=== PATIENT | male | born 1970 | race Caucasian/White ===

== ENCOUNTER 2019-03-14 15:20 | Emergency (ER) | payer MEDICAID, SELFPAY ==
[2019-03-14] VITALS (7 sets, daily range): BP systolic 113–135; BP diastolic 70–76; PULSE 79–104; RESP 15–17; TEMP 36.4–37.1; O2SAT 98–100
--- NOTE | 2019-03-14 15:41 | DI.RAD_ITS ---
SYMPTOM/DIAGNOSIS: CONFUSION, R/O ACUTE DISEASE AP AND LATERAL CHEST: Comparison is made with 31 Aug 2017. The heart size is normal. The lungs are clear. No infiltrate, effusion or mass is identified. IMPRESSION: Negative chest x-ray
--- NOTE | 2019-03-14 15:41 | DI.CT_ITS ---
SYMPTOM/DIAGNOSIS: CONFUSION, R/O ACUTE CVA NONCONTRAST HEAD CT: Comparison is made with 31 Aug 2017. No intracranial hemorrhage or skull fracture seen. The ventricles are normal in size. There has been no change from the previous exam. IMPRESSION: Negative head CT.
--- NOTE | 2019-03-14 15:43 | W.ED.GENAD ---
Discharge Plan Disposition Patient Disposition: HOME Condition: Improving Discharge Details Chief Complaint: OD/Poison Clinical Impression: Altered mental status, Heroin use, Cocaine use Primary Care Provider: Zonia Camacho ED Provider: Linda Kim Home Meds and New Rx's Prescriptions: Continued acetaminophen [Tylenol] 325 MG tablet 650 mg PO PRN RF: 0 multivitamin [Multi-Day] 1 EACH tablet 1 tab PO DAILY RF: 0 ibuprofen 200 MG tablet 200 mg PO Q8H PRN PRNRF: 0 nicotine 21 MG/24 HR patch 24 hour 21 mg Transdermal DAILY Qty: 30 RF: 0 melatonin 3 MG tablet 6 mg PO HS PRNRF: 0 vit B nshy-F-PJ-iron-vit E [Vitamins B Complex] 1 EACH tablet 1 tab PO DAILY RF: 0 jk-[id number]-vjxo-FA-herbal cmplx#[id number] [Vitamin D3 Complete] 1 EACH tablet 1 tab PO DAILY RF: 0 Discharge Instructions Instructions: Narcotic Abuse (ED), Altered Mental Status (ED) Additional Instructions: Take the clonidine as needed and directed for symptoms related to drug withdrawal. Drink plenty fluids and get plenty of rest. Call your local recovery center to help with detoxification and drug withdrawal symptoms. Call your primary care doctor on Sunday to schedule a follow-up appointment for reevaluation. Return immediately to the emergency department if you develop any worsening or concerning symptoms. Discharge Data Discharge Date/Time-TO BE ENTERED AT DEPARTURE: 03/14/19 18:58 Discharge Physician: Linda Kim Medical Decision Making 48-year-old male with a history of IV drug abuse and previous alcohol abuse who presents with a complaint of confusion and not feeling right. Last IV heroin use at 4 AM, last cocaine use this afternoon, and took a tablet of Subutex at 12:30 PM today. Heart rate 100s, remainder vitals within normal limits. Patient appears very anxious and delayed in answering questions. There is a brief period during evaluation, where patient appeared to fall asleep and became unresponsive but was breathing. This lasted approximately 20 seconds and patient awoke and was able to answer questions. Patient also had a brief period where he stood up well nurses attempted to place an IV and he pulled off his monitor leads and bracelet. He then walked to the door near the outside of the room and slowly lowered himself to the ground but did not fall. He then awoke and was able to be stood up and he ambulated to the stretcher. Screening labs, chest x-ray, CT head, UDS, alcohol, acetaminophen, salicylate ordered. Suspect most likely his symptoms are due to multiple polysubstance abuse today. Will rule out ACS, electrolyte abnormality, CVA, or other acute intoxication. Will give a dose of Ativan and fluids and reassess. EKG notes a rate of 83, sinus, T wave inversion in V2, no acute ST ischemic changes, no old EKG to compare. Labs and imaging reviewed and unremarkable. CT head and chest x-ray negative. Normal white blood cell count, electrolytes. UDS notes opiates and cocaine. Urinalysis negative. Patient is requesting to go home. He is alert with clear speech and normal ambulation. He states he has clonidine at home that will help with withdrawal as he wants to detox from cocaine and heroin. He states he is also in contact with a local recovery center near his house. He states he had a follow-up appoint with his primary care doctor at [facility] [place] today but missed the appointment. His girlfriend is at bedside and will call the primary care doctor's office on Sunday morning to schedule follow-up appointment for reevaluation. Patient is requesting a few more tabs of clonidine for home. He is instructed to not take this if he uses any illicit drugs. He is instructed to return here immediately if he has any worsening or new concerning symptoms per Medical Records Medical records reviewed: Yes I reviewed the patient's medical records. Imaging Data Radiologic Study: Radiologist's impression: CT Head Without Contrast EXAM DATE/TIME: 03/14/2019 3:43 PM CLINICAL HISTORY: 48 years old, male; Alteration of consciousness; Other: Od TECHNIQUE: Imaging protocol: Axial computed tomography images of the head without contrast. Coronal and sagittal reformatted images were created and reviewed. COMPARISON: CT HEAD AND CSPINE W/O CONTRAST 08/31/2017 12:40 PM FINDINGS: Brain: Normal. No hemorrhage. Unremarkable white matter. No mass effect. Ventricles: Normal. No ventriculomegaly. Bones/joints: Unremarkable. No acute fracture. Sinuses: Visualized sinuses are unremarkable. No fluid levels. Mastoid air cells: Visualized mastoid air cells are well aerated. No mastoid effusion. Soft tissues: Unremarkable. IMPRESSION: No evidence for acute intracranial abnormality. Patient Name: JAYSON ROLLINS #: [id number]: ER Ordering Provider: : REG ER Primary Care Provider: Zonia Camacho Date of Exam: 03/14/19Sex: M : 1970Age: 48 XR Chest, 2 Views EXAM DATE/TIME: 03/14/2019 3:43 PM CLINICAL HISTORY: 48 years old, male; Other: AMS; Patient HX: Od TECHNIQUE: Imaging protocol: XR of the chest, 2 views. COMPARISON: CR CHEST 2 VIEWS PA,LAT 08/31/2017 12:43 PM FINDINGS: Lungs: The lungs are hyperaerated and hyperlucent. There is increase in the retrosternal airspace. Consider COPD. Pleural space: Unremarkable. No pleural effusion. No pneumothorax. Heart/Mediastinum: Unremarkable. No cardiomegaly. Bones/joints: Unremarkable. IMPRESSION: Mild hyperaeration, possible COPD. Reactive airway change is not excludable. Lab Data Lab results reviewed: Yes I reviewed the patient's lab results. Laboratory Tests Range/Units 03/14/19 03/14/19 03/14/19 16:00 16:00 16:00 WBC (4.4-10.8) k/cumm 10.14 RBC (4.50-6.00) m/cumm 5.22 Hgb (13.5-17.5) g/dL 16.3 Hct (40.0-50.0) % 47.4 MCV (80-95) fL 90.8 MCH (27.0-33.0) pg 31.2 MCHC (32.0-36.0) g/dL 34.4 RDW (11.8-14.1) % 14.0 Plt Count (130-400) x1000/uL 196 MPV (8.0-11.0) fL 10.3 Immature Gran % 0.2 Neutrophils % 54.6 Lymphocytes % 33.6 Monocytes % 9.1 Eosinophils % 2.1 Basophils % 0.4 Absolute Neutrophils (1.2-6.7) k/cumm 5.54 Absolute Lymphocytes (1.2-3.4) k/cumm 3.41 H Absolute Monocytes (0.11-0.7) k/cumm 0.92 H Absolute Eosinophils (0.0-0.7) k/cumm 0.21 Absolute Basophils (0.0-0.2) k/cumm 0.04 Sodium (136-145) mmol/L 138 Potassium (3.5-5.1) mmol/L 3.7 Chloride (98-107) mmol/L 101 Carbon Dioxide (21.0-32.0) mmol/L 26.5 Anion Gap (3-11) mmol/L 10.5 BUN (7-18) mg/dL 15 Creatinine (0.70-1.30) mg/dL 1.11 Estimated GFR/1.73 m2 (mL/min/1.73m2) >= 60.00 Glucose (70-100) mg/dL 146 H Calcium (8.5-10.1) mg/dL 8.3 L Magnesium (1.8-2.4) mg/dL 2.0 Total Bilirubin (0.2-1.0) mg/dL 0.4 AST (15-37) U/L 39 H ALT (12-78) U/L 58 Alkaline Phosphatase (46-116) U/L 82 Troponin I (0.00-0.06) ng/mL < 0.05 Total Protein (6.4-8.2) g/dL 7.9 Albumin (3.4-5.0) g/dL 3.8 Urine Color (Yellow) Urine Clarity (Clear) Urine pH (5-8) Ur Specific [place] (1.005-1.025) Urine Protein (Negative) mg/dL Urine Ketones (Negative) mg/dL Urine Blood (Negative) Urine Nitrite (Negative) Urine Bilirubin (Negative) Urine Urobilinogen (Up TO 0.2) EU/dL Ur Leukocyte Esterase (Negative) Urine Glucose (Negative) mg/dL Salicylates (2.8-20.0) mg/dL 5.7 Urine Opiates Screen (Negative) Urine Methadone Screen (Negative) Acetaminophen (10-30) ug/mL < 3 L Ur Barbiturates Screen (Negative) Ur Tricyclics Screen (Negative) Ur Amphetamines Screen (Negative) U Benzodiazepines Scrn (Negative) Urine Cocaine Screen (Negative) Ur THC Screen (Negative) Ethyl Alcohol (<3) mg/dL < 3.0 Range/Units 06/28/19 06/28/19 16:30 16:30 WBC (4.4-10.8) k/cumm RBC (4.50-6.00) m/cumm Hgb (13.5-17.5) g/dL Hct (40.0-50.0) % MCV (80-95) fL MCH (27.0-33.0) pg MCHC (32.0-36.0) g/dL RDW (11.8-14.1) % Plt Count (130-400) x1000/uL MPV (8.0-11.0) fL Immature Gran % Neutrophils % Lymphocytes % Monocytes % Eosinophils % Basophils % Absolute Neutrophils (1.2-6.7) k/cumm Absolute Lymphocytes (1.2-3.4) k/cumm Absolute Monocytes (0.11-0.7) k/cumm Absolute Eosinophils (0.0-0.7) k/cumm Absolute Basophils (0.0-0.2) k/cumm Sodium (136-145) mmol/L Potassium (3.5-5.1) mmol/L Chloride (98-107) mmol/L Carbon Dioxide (21.0-32.0) mmol/L Anion Gap (3-11) mmol/L BUN (7-18) mg/dL Creatinine (0.70-1.30) mg/dL Estimated GFR/1.73 m2 (mL/min/1.73m2) Glucose (70-100) mg/dL Calcium (8.5-10.1) mg/dL Magnesium (1.8-2.4) mg/dL Total Bilirubin (0.2-1.0) mg/dL AST (15-37) U/L ALT (12-78) U/L Alkaline Phosphatase (46-116) U/L Troponin I (0.00-0.06) ng/mL Total Protein (6.4-8.2) g/dL Albumin (3.4-5.0) g/dL Urine Color (Yellow) Yellow Urine Clarity (Clear) Clear Urine pH (5-8) 5.5 Ur Specific [place] (1.005-1.025) 1.010 Urine Protein (Negative) mg/dL Negative Urine Ketones (Negative) mg/dL Negative Urine Blood (Negative) Negative Urine Nitrite (Negative) Negative Urine Bilirubin (Negative) Negative Urine Urobilinogen (Up TO 0.2) EU/dL 0.2 Ur Leukocyte Esterase (Negative) Negative Urine Glucose (Negative) mg/dL Negative Salicylates (2.8-20.0) mg/dL Urine Opiates Screen (Negative) Positive Urine Methadone Screen (Negative) Negative Acetaminophen (10-30) ug/mL Ur Barbiturates Screen (Negative) Negative Ur Tricyclics Screen (Negative) Negative Ur Amphetamines Screen (Negative) Negative U Benzodiazepines Scrn (Negative) Negative Urine Cocaine Screen (Negative) Positive Ur THC Screen (Negative) Negative Ethyl Alcohol (<3) mg/dL ECG Data Attestation: I personally reviewed and interpreted this ECG (s) as follows: Interpretation: Rate of 85, sinus, T wave inversion in V2. No acute ST ischemic changes. QTc 461. QRS 94. No old EKG to compare. HPI General Mode of arrival: ambulatory. Date/Time Provider Initiated Documentation: 03/14/19 15:23. Limitations to Documentation: no limitations. Information obtained by: patient. HPI Narrative: Patient is a 48-year-old male with a history of IV drug abuse and previous history of alcohol abuse who presents to the ED with anxiety and concern for withdrawal. Patient unable to provide much history due to severe anxiety and delayed answering questions. He does admit to last IV heroin use at 4 AM. He does also admit to cocaine use this afternoon. He states he also took a dose of Subutex at 12:30 PM and states since then he has felt more confused and states I do not feel. States his last subutex use was 1 year ago. Related Data Home Medications Medication Instructions Recorded Confirmed multivitamin [Multi-Day] 1 tab PO DAILY 08/01/13 08/31/17 acetaminophen [Tylenol] 650 mg PO PRN tab-cap 02/11/16 08/31/17 ibuprofen 200 mg PO Q8H PRN PRN 05/22/16 08/31/17 nicotine 21 mg TRANSDERMAL DAILY #30 patch 05/26/16 08/31/17 melatonin 6 mg PO HS PRN 08/31/17 08/31/17 en-[id number]-fgin-FA-herbal cmplx#[id number] 1 tab PO DAILY 08/31/17 08/31/17 [Vitamin D3 Complete] vit B yozy-Y-HE-iron-vit E 1 tab PO DAILY 08/31/17 08/31/17 [Vitamins B Complex] Previous Rx's Medication Instructions Recorded nicotine 21 mg TRANSDERMAL DAILY #30 patch 05/26/16 Allergies Allergy/AdvReac Type Severity Reaction Status Date / Time No Known Drug Allergies Allergy Unverified 08/31/17 12:07 General Stated Complaint: OD/Poison RENETTA: 2 Review of Systems Review of Systems All systems reviewed & are unremarkable except as noted in HPI and below Constitutional Reports as per HPI, Denies chills and Denies fever(s) Eyes Denies blurry vision ENT Denies dizziness, Denies sore throat and Denies throat swelling Cardiovascular Denies chest pain and Denies dyspnea Respiratory Denies cough and Denies dyspnea Gastrointestinal Denies abdominal pain, Denies diarrhea and Denies vomiting Genitourinary Denies hematuria and Denies dysuria Musculoskeletal Denies back pain and Denies numbness Integumentary/Breasts Denies lesions and Denies rash Neurologic Reports confusion, Denies dizziness, Denies focal weakness and Denies numbness Psychiatric Reports confusion Allergic/Immunologic Denies throat swelling [facility] Medical History IV drug abuse (Acute) Alcohol abuse (Chronic) Hepatitis C (Chronic) Surgical History liver biopsy Family History Mother Personal history of malignant neoplasm Father Alcohol abuse Social History Smoking/Tobacco Use Status: Current every day Alcohol Intake: never Drug use: Daily Substance use type: crack/cocaine and heroin Do you feel safe in your relationship?: Yes Exam Const General: cooperative and anxious Orientation: alert, awake and other (delay in answering questions) HENMT Head: normal to inspection Ears: hearing grossly normal bilaterally, external ears normal and TM's normal bilaterally General nose exam: external nose normal Face and sinus: normal facial exam Mouth: oral mucosae normal Teeth and gingiva: dentition normal Throat: posterior oropharynx normal Eyes General: appearance normal, both eyes and all related structures Eyelids: eyelids normal Pupils: PERRL EOM: EOM intact bilaterally Neck Neck: normal visual inspection Lymphatic: no lymphadenopathy noted Chest Chest: normal inspection of the chest Resp Effort & Inspection: normal respiratory effort and able to speak in complete sentences Auscultation: clear to auscultation bilaterally Cardio Rate: regular rate Rhythm: regular rhythm GI Inspection: normal to inspection and no abdominal wall ecchymosis Palpation: soft, not firm, no guarding, no hepatosplenomegaly, no masses and nontender Auscultation: normal bowel sounds Back/Spine/Pelvis Back: no CVA tenderness Skin General skin exam: no rashes or lesions noted Neuro General: alert, awake and oriented x3 Cranial Nerves: CN's II-XI intact bilaterally Cognition: abnormal cognition (anxious, delay in answering questions) Speech: speech normal Gait: normal gait Motor: muscle tone normal throughout and strength 5/5 throughout Sensory Exam: no sensory deficits noted Extrem General: normal to inspection, full ROM and normal capillary refill Psych Appearance: grossly normal Mental Status: mental status grossly normal Speech and Movement: speech and movement normal Affect: normal affect Thought Process: normal Course Vital Signs Temperature 98.4 F 03/14/19 15:24 Pulse 104 H 03/14/19 15:24 Blood Pressure 135/71 03/14/19 15:24 Pulse Oximetry 98 03/14/19 15:24 Temperature 98.4 F 03/14/19 15:24 Temperature Source Skin 03/14/19 15:24 Pulse 104 H 03/14/19 15:24 Blood Pressure 135/71 03/14/19 15:24 Pulse Oximetry 98 03/14/19 15:24 Oxygen Delivery Method Room Air 03/14/19 15:24 Oxygen Flow Rate 0 03/14/19 15:24 Pain Level 0 03/14/19 15:24
--- NOTE | 2019-03-14 15:50 | ED.GENADUL_ITS ---
Discharge Plan Disposition Patient Disposition: HOME Condition: Improving Discharge Details Chief Complaint: OD/Poison Clinical Impression: Altered mental status, Heroin use, Cocaine use Primary Care Provider: Zonia Camacho ED Provider: Linda Kim Home Meds and New Rx's Prescriptions: Continued acetaminophen [Tylenol] 325 MG tablet 650 mg PO PRN RF: 0 multivitamin [Multi-Day] 1 EACH tablet 1 tab PO DAILY RF: 0 ibuprofen 200 MG tablet 200 mg PO Q8H PRN PRNRF: 0 nicotine 21 MG/24 HR patch 24 hour 21 mg Transdermal DAILY Qty: 30 RF: 0 melatonin 3 MG tablet 6 mg PO HS PRNRF: 0 vit B rtim-O-KP-iron-vit E [Vitamins B Complex] 1 EACH tablet 1 tab PO DAILY RF: 0 [id number]-FA-herbal cmplx#[id number] [Vitamin D3 Complete] 1 EACH tablet 1 tab PO DAILY RF: 0 Discharge Instructions Instructions: Narcotic Abuse (ED), Altered Mental Status (ED) Additional Instructions: Take the clonidine as needed and directed for symptoms related to drug withdrawal. Drink plenty fluids and get plenty of rest. Call your local recovery center to help with detoxification and drug withdrawal symptoms. Call your primary care doctor on Sunday to schedule a follow-up appointment for reevaluation. Return immediately to the emergency department if you develop any worsening or concerning symptoms. Discharge Data Discharge Date/Time-TO BE ENTERED AT DEPARTURE: 03/14/19 18:58 Discharge Physician: Linda Kim Medical Decision Making 48-year-old male with a history of IV drug abuse and previous alcohol abuse who presents with a complaint of confusion and not feeling right. Last IV heroin use at 4 AM, last cocaine use this afternoon, and took a tablet of Subutex at 12:30 PM today. Heart rate 100s, remainder vitals within normal limits. Patient appears very anxious and delayed in answering questions. There is a brief period during evaluation, where patient appeared to fall asleep and became unresponsive but was breathing. This lasted approximately 20 seconds and patient awoke and was able to answer questions. Patient also had a brief period where he stood up well nurses attempted to place an IV and he pulled off his monitor leads and bracelet. He then walked to the door near the outside of the room and slowly lowered himself to the ground but did not fall. He then awoke and was able to be stood up and he ambulated to the stretcher. Screening labs, chest x-ray, CT head, UDS, alcohol, acetaminophen, salicylate ordered. Suspect most likely his symptoms are due to multiple polysubstance abuse today. Will rule out ACS, electrolyte abnormality, CVA, or other acute intoxication. Will give a dose of Ativan and fluids and reassess. EKG notes a rate of 83, sinus, T wave inversion in V2, no acute ST ischemic changes, no old EKG to compare. Labs and imaging reviewed and unremarkable. CT head and chest x-ray negative. Normal white blood cell count, electrolytes. UDS notes opiates and cocaine. Urinalysis negative. Patient is requesting to go home. He is alert with clear speech and normal ambulation. He states he has clonidine at home that will help with withdrawal as he wants to detox from cocaine and heroin. He states he is also in contact with a local recovery center near his house. He states he had a follow-up appoint with his primary care doctor at [place] today but missed the appointment. His girlfriend is at bedside and will call the primary care doctor's office on Sunday morning to schedule follow-up appointment for reevaluation. Patient is requesting a few more tabs of clonidine for home. He is instructed to not take this if he uses any illicit drugs. He is instructed to return here immediately if he has any worsening or new concerning symptoms per Medical Records Medical records reviewed: Yes I reviewed the patient's medical records. Imaging Data Radiologic Study: Radiologist's impression: CT Head Without Contrast EXAM DATE/TIME: 03/14/2019 3:43 PM CLINICAL HISTORY: 48 years old, male; Alteration of consciousness; Other: Od TECHNIQUE: Imaging protocol: Axial computed tomography images of the head without contrast. Coronal and sagittal reformatted images were created and reviewed. COMPARISON: CT HEAD AND CSPINE W/O CONTRAST 08/31/2017 12:40 PM FINDINGS: Brain: Normal. No hemorrhage. Unremarkable white matter. No mass effect. Ventricles: Normal. No ventriculomegaly. Bones/joints: Unremarkable. No acute fracture. Sinuses: Visualized sinuses are unremarkable. No fluid levels. Mastoid air cells: Visualized mastoid air cells are well aerated. No mastoid effusion. Soft tissues: Unremarkable. IMPRESSION: No evidence for acute intracranial abnormality. Patient Name: JAYSON ROLLINS #: [id number]: ER Ordering Provider: : REG ER Primary Care Provider: Zonia Camacho Date of Exam: 03/14/19Sex: M : 1970Age: 48 XR Chest, 2 Views EXAM DATE/TIME: 03/14/2019 3:43 PM CLINICAL HISTORY: 48 years old, male; Other: AMS; Patient HX: Od TECHNIQUE: Imaging protocol: XR of the chest, 2 views. COMPARISON: CR CHEST 2 VIEWS PA,LAT 08/31/2017 12:43 PM FINDINGS: Lungs: The lungs are hyperaerated and hyperlucent. There is increase in the retrosternal airspace. Consider COPD. Pleural space: Unremarkable. No pleural effusion. No pneumothorax. Heart/Mediastinum: Unremarkable. No cardiomegaly. Bones/joints: Unremarkable. IMPRESSION: Mild hyperaeration, possible COPD. Reactive airway change is not excludable. Lab Data Lab results reviewed: Yes I reviewed the patient's lab results. Laboratory Tests Range/Units 03/14/19 03/14/19 03/14/19 16:00 16:00 16:00 WBC (4.4-10.8) k/cumm 10.14 RBC (4.50-6.00) m/cumm 5.22 Hgb (13.5-17.5) g/dL 16.3 Hct (40.0-50.0) % 47.4 MCV (80-95) fL 90.8 MCH (27.0-33.0) pg 31.2 MCHC (32.0-36.0) g/dL 34.4 RDW (11.8-14.1) % 14.0 Plt Count (130-400) x1000/uL 196 MPV (8.0-11.0) fL 10.3 Immature Gran % 0.2 Neutrophils % 54.6 Lymphocytes % 33.6 Monocytes % 9.1 Eosinophils % 2.1 Basophils % 0.4 Absolute Neutrophils (1.2-6.7) k/cumm 5.54 Absolute Lymphocytes (1.2-3.4) k/cumm 3.41 H Absolute Monocytes (0.11-0.7) k/cumm 0.92 H Absolute Eosinophils (0.0-0.7) k/cumm 0.21 Absolute Basophils (0.0-0.2) k/cumm 0.04 Sodium (136-145) mmol/L 138 Potassium (3.5-5.1) mmol/L 3.7 Chloride (98-107) mmol/L 101 Carbon Dioxide (21.0-32.0) mmol/L 26.5 Anion Gap (3-11) mmol/L 10.5 BUN (7-18) mg/dL 15 Creatinine (0.70-1.30) mg/dL 1.11 Estimated GFR/1.73 m2 (mL/min/1.73m2) >= 60.00 Glucose (70-100) mg/dL 146 H Calcium (8.5-10.1) mg/dL 8.3 L Magnesium (1.8-2.4) mg/dL 2.0 Total Bilirubin (0.2-1.0) mg/dL 0.4 AST (15-37) U/L 39 H ALT (12-78) U/L 58 Alkaline Phosphatase (46-116) U/L 82 Troponin I (0.00-0.06) ng/mL < 0.05 Total Protein (6.4-8.2) g/dL 7.9 Albumin (3.4-5.0) g/dL 3.8 Urine Color (Yellow) Urine Clarity (Clear) Urine pH (5-8) Ur Specific Buford (1.005-1.025) Urine Protein (Negative) mg/dL Urine Ketones (Negative) mg/dL Urine Blood (Negative) Urine Nitrite (Negative) Urine Bilirubin (Negative) Urine Urobilinogen (Up TO 0.2) EU/dL Ur Leukocyte Esterase (Negative) Urine Glucose (Negative) mg/dL Salicylates (2.8-20.0) mg/dL 5.7 Urine Opiates Screen (Negative) Urine Methadone Screen (Negative) Acetaminophen (10-30) ug/mL < 3 L Ur Barbiturates Screen (Negative) Ur Tricyclics Screen (Negative) Ur Amphetamines Screen (Negative) U Benzodiazepines Scrn (Negative) Urine Cocaine Screen (Negative) Ur THC Screen (Negative) Ethyl Alcohol (<3) mg/dL < 3.0 Range/Units 06/28/19 06/28/19 16:30 16:30 WBC (4.4-10.8) k/cumm RBC (4.50-6.00) m/cumm Hgb (13.5-17.5) g/dL Hct (40.0-50.0) % MCV (80-95) fL MCH (27.0-33.0) pg MCHC (32.0-36.0) g/dL RDW (11.8-14.1) % Plt Count (130-400) x1000/uL MPV (8.0-11.0) fL Immature Gran % Neutrophils % Lymphocytes % Monocytes % Eosinophils % Basophils % Absolute Neutrophils (1.2-6.7) k/cumm Absolute Lymphocytes (1.2-3.4) k/cumm Absolute Monocytes (0.11-0.7) k/cumm Absolute Eosinophils (0.0-0.7) k/cumm Absolute Basophils (0.0-0.2) k/cumm Sodium (136-145) mmol/L Potassium (3.5-5.1) mmol/L Chloride (98-107) mmol/L Carbon Dioxide (21.0-32.0) mmol/L Anion Gap (3-11) mmol/L BUN (7-18) mg/dL Creatinine (0.70-1.30) mg/dL Estimated GFR/1.73 m2 (mL/min/1.73m2) Glucose (70-100) mg/dL Calcium (8.5-10.1) mg/dL Magnesium (1.8-2.4) mg/dL Total Bilirubin (0.2-1.0) mg/dL AST (15-37) U/L ALT (12-78) U/L Alkaline Phosphatase (46-116) U/L Troponin I (0.00-0.06) ng/mL Total Protein (6.4-8.2) g/dL Albumin (3.4-5.0) g/dL Urine Color (Yellow) Yellow Urine Clarity (Clear) Clear Urine pH (5-8) 5.5 Ur Specific Buford (1.005-1.025) 1.010 Urine Protein (Negative) mg/dL Negative Urine Ketones (Negative) mg/dL Negative Urine Blood (Negative) Negative Urine Nitrite (Negative) Negative Urine Bilirubin (Negative) Negative Urine Urobilinogen (Up TO 0.2) EU/dL 0.2 Ur Leukocyte Esterase (Negative) Negative Urine Glucose (Negative) mg/dL Negative Salicylates (2.8-20.0) mg/dL Urine Opiates Screen (Negative) Positive Urine Methadone Screen (Negative) Negative Acetaminophen (10-30) ug/mL Ur Barbiturates Screen (Negative) Negative Ur Tricyclics Screen (Negative) Negative Ur Amphetamines Screen (Negative) Negative U Benzodiazepines Scrn (Negative) Negative Urine Cocaine Screen (Negative) Positive Ur THC Screen (Negative) Negative Ethyl Alcohol (<3) mg/dL ECG Data Attestation: I personally reviewed and interpreted this ECG (s) as follows: Interpretation: Rate of 85, sinus, T wave inversion in V2. No acute ST ischemic changes. QTc 461. QRS 94. No old EKG to compare. HPI General Mode of arrival: ambulatory . Date/Time Provider Initiated Documentation: 03/14/19 15:23 . Limitations to Documentation: no limitations . Information obtained by: patient . HPI Narrative: Patient is a 48-year-old male with a history of IV drug abuse and previous history of alcohol abuse who presents to the ED with anxiety and concern for withdrawal. Patient unable to provide much history due to severe anxiety and delayed answering questions. He does admit to last IV heroin use at 4 AM. He does also admit to cocaine use this afternoon. He states he also took a dose of Subutex at 12:30 PM and states since then he has felt more confused and states I do not feel. States his last subutex use was 1 year ago. Related Data Home Medications Medication Instructions Recorded Confirmed multivitamin [Multi-Day] 1 tab PO DAILY 08/01/13 08/31/17 acetaminophen [Tylenol] 650 mg PO PRN tab-cap 02/11/16 08/31/17 ibuprofen 200 mg PO Q8H PRN PRN 05/22/16 08/31/17 nicotine 21 mg TRANSDERMAL DAILY #30 patch 05/26/16 08/31/17 melatonin 6 mg PO HS PRN 08/31/17 08/31/17 [id number]-za-lsiw-FA-herbal cmplx#190 1 tab PO DAILY 08/31/17 08/31/17 [Vitamin D3 Complete] vit B xzbq-U-PX-iron-vit E 1 tab PO DAILY 08/31/17 08/31/17 [Vitamins B Complex] Previous Rx's Medication Instructions Recorded nicotine 21 mg TRANSDERMAL DAILY #30 patch 05/26/16 Allergies Allergy/AdvReac Type Severity Reaction Status Date / Time No Known Drug Allergies Allergy Unverified 08/31/17 12:07 General Stated Complaint: OD/Poison RENETTA: 2 Review of Systems Review of Systems All systems reviewed & are unremarkable except as noted in HPI and below Constitutional Reports as per HPI, Denies chills and Denies fever(s) Eyes Denies blurry vision ENT Denies dizziness, Denies sore throat and Denies throat swelling Cardiovascular Denies chest pain and Denies dyspnea Respiratory Denies cough and Denies dyspnea Gastrointestinal Denies abdominal pain, Denies diarrhea and Denies vomiting Genitourinary Denies hematuria and Denies dysuria Musculoskeletal Denies back pain and Denies numbness Integumentary/Breasts Denies lesions and Denies rash Neurologic Reports confusion, Denies dizziness, Denies focal weakness and Denies numbness Psychiatric Reports confusion Allergic/Immunologic Denies throat swelling [facility] Medical History IV drug abuse (Acute) Alcohol abuse (Chronic) Hepatitis C (Chronic) Surgical History liver biopsy Family History Mother Personal history of malignant neoplasm Father Alcohol abuse Social History Smoking/Tobacco Use Status: Current every day Alcohol Intake: never Drug use: Daily Substance use type: crack/cocaine and heroin Do you feel safe in your relationship?: Yes Exam Const General: cooperative and anxious Orientation: alert, awake and other (delay in answering questions) HENMT Head: normal to inspection Ears: hearing grossly normal bilaterally, external ears normal and TM's normal bilaterally General nose exam: external nose normal Face and sinus: normal facial exam Mouth: oral mucosae normal Teeth and gingiva: dentition normal Throat: posterior oropharynx normal Eyes General: appearance normal, both eyes and all related structures Eyelids: eyelids normal Pupils: PERRL EOM: EOM intact bilaterally Neck Neck: normal visual inspection Lymphatic: no lymphadenopathy noted Chest Chest: normal inspection of the chest Resp Effort & Inspection: normal respiratory effort and able to speak in complete sentences Auscultation: clear to auscultation bilaterally Cardio Rate: regular rate Rhythm: regular rhythm GI Inspection: normal to inspection and no abdominal wall ecchymosis Palpation: soft, not firm, no guarding, no hepatosplenomegaly, no masses and nontender Auscultation: normal bowel sounds Back/Spine/Pelvis Back: no CVA tenderness Skin General skin exam: no rashes or lesions noted Neuro General: alert, awake and oriented x3 Cranial Nerves: CN's II-XI intact bilaterally Cognition: abnormal cognition (anxious, delay in answering questions) Speech: speech normal Gait: normal gait Motor: muscle tone normal throughout and strength 5/5 throughout Sensory Exam: no sensory deficits noted Extrem General: normal to inspection, full ROM and normal capillary refill Psych Appearance: grossly normal Mental Status: mental status grossly normal Speech and Movement: speech and movement normal Affect: normal affect Thought Process: normal Course Vital Signs Temperature 98.4 F 03/14/19 15:24 Pulse 104 H 03/14/19 15:24 Blood Pressure 135/71 03/14/19 15:24 Pulse Oximetry 98 03/14/19 15:24 Temperature 98.4 F 03/14/19 15:24 Temperature Source Skin 03/14/19 15:24 Pulse 104 H 03/14/19 15:24 Blood Pressure 135/71 03/14/19 15:24 Pulse Oximetry 98 03/14/19 15:24 Oxygen Delivery Method Room Air 03/14/19 15:24 Oxygen Flow Rate 0 03/14/19 15:24 Pain Level 0 03/14/19 15:24
[2019-03-14 16:10] LABS: Abs Immature Grans 0.02 k/cumm (0.0-0.09); Absolute Basophil Count 0.04 k/cumm (0.0-0.2); Absolute Eosinophil Count 0.21 k/cumm (0.0-0.7); Absolute Lymphocyte Count 3.41 k/cumm (1.2-3.4); Absolute Monocyte Count 0.92 k/cumm (0.11-0.7); Absolute Neutrophil Count 5.54 k/cumm (1.2-6.7); Basophils % 0.4; Eosinophils % 2.1; HCT 47.4 % (40.0-50.0); HGB 16.3 g/dL (13.5-17.5); Immature Grans % 0.2; Lymphocytes % 33.6; Mean Corp. HGB Concentration 34.4 g/dL (32.0-36.0); Mean Corpuscular Hemoglobin 31.2 pg (27.0-33.0); Mean Corpuscular Volume 90.8 fL (80-95); Mean Platelet Volume 10.3 fL (8.0-11.0); Monocytes % 9.1; Neutrophils % 54.6; Platelet Count 196 x1000/uL (130-400); RBC 5.22 m/cumm (4.50-6.00); White Blood Cell Count 10.14 k/cumm (4.4-10.8)
[2019-03-14] MEDS: LORazepam 2 MG/ML VIAL 0.5 MG IVP ×2 (16:11→16:18)
[2019-03-14] MEDS: Normal Saline 1,000 ML 1000 ML IV (16:18)
[2019-03-14 16:33] LABS: ALT 58 U/L (12-78); AST 39 U/L (15-37); Albumin 3.8 g/dL (3.4-5.0); Alkaline Phosphatase 82 U/L (46-116); Anion Gap 10.5 mmol/L (3-11); BUN 15 mg/dL (7-18); Bilirubin, Total 0.4 mg/dL (0.2-1.0); CO2 26.5 mmol/L (21.0-32.0); CREATININE 1.11 mg/dL (0.70-1.30); Calcium 8.3 mg/dL (8.5-10.1); Chloride 101 mmol/L (98-107); Glucose 146 mg/dL (70-100); Potassium 3.7 mmol/L (3.5-5.1); Sodium 138 mmol/L (136-145); Total Protein 7.9 g/dL (6.4-8.2)
[2019-03-14 16:43] LABS: Bilirubin Negative (Negative); Blood Negative (Negative); Clarity Clear (Clear); Glucose Negative (Negative); Ketones Negative (Negative); Leukocyte Esterase Negative (Negative); Nitrite Negative (Negative); Urobilinogen 0.2 EU/dL (Up TO 0.2); pH 5.5 (5-8)
[2019-03-14 16:44] LABS: Troponin I < 0.05 ng/mL (0.00-0.06)
[2019-03-14 16:59] LABS: ETHANOL BLOOD < 3.0 mg/dL (<3)
[2019-03-14 17:12] LABS: Salicylate 5.7 mg/dL (2.8-20.0)
[2019-03-14 17:12] LABS: *AMPHETAMINES SCREEN URINE Negative (Negative); *BARBITURATES SCREEN URINE Negative (Negative); *BENZODIAZEPINES SCREEN URINE Negative (Negative); Cannabinoids THC Negative (Negative); Cocaine Screen,Urine POSITIVE (Negative); METHADONE URINE SCREEN Negative (Negative); OPIATES URINE SCREEN POSITIVE (Negative)
[2019-03-14 17:13] LABS: Acetaminophen < 3 ug/mL (10-30)
[2019-03-14 17:20] LABS: Tricyclic Antidepressants Negative (Negative)
--- NOTE | 2019-03-14 17:40 | DI.VRAD_ITS ---
EXAM: CT Head Without Contrast EXAM DATE/TIME: 03/14/2019 3:43 PM CLINICAL HISTORY: 48 years old, male; Alteration of consciousness; Other: Od TECHNIQUE: Imaging protocol: Axial computed tomography images of the head without contrast. Coronal and sagittal reformatted images were created and reviewed. COMPARISON: CT HEAD AND CSPINE W/O CONTRAST 08/31/2017 12:40 PM FINDINGS: Brain: Normal. No hemorrhage. Unremarkable white matter. No mass effect. Ventricles: Normal. No ventriculomegaly. Bones/joints: Unremarkable. No acute fracture. Sinuses: Visualized sinuses are unremarkable. No fluid levels. Mastoid air cells: Visualized mastoid air cells are well aerated. No mastoid effusion. Soft tissues: Unremarkable. IMPRESSION: No evidence for acute intracranial abnormality. COMMENT: Preliminary interpretation is based on receipt of 340 image(s). A final report will be issued subsequently. Dictated and Authenticated by: Yani Leon MD. Ordering:SAUL Mckeon MD
--- NOTE | 2019-03-14 17:47 | DI.VRAD_ITS ---
EXAM: XR Chest, 2 Views EXAM DATE/TIME: 03/14/2019 3:43 PM CLINICAL HISTORY: 48 years old, male; Other: AMS; Patient HX: Od TECHNIQUE: Imaging protocol: XR of the chest, 2 views. COMPARISON: CR CHEST 2 VIEWS PA,LAT 08/31/2017 12:43 PM FINDINGS: Lungs: The lungs are hyperaerated and hyperlucent. There is increase in the retrosternal airspace. Consider COPD. Pleural space: Unremarkable. No pleural effusion. No pneumothorax. Heart/Mediastinum: Unremarkable. No cardiomegaly. Bones/joints: Unremarkable. IMPRESSION: Mild hyperaeration, possible COPD. Reactive airway change is not excludable. COMMENT: Preliminary interpretation is based on receipt of 2 image(s). A final report will be issued subsequently. Dictated and Authenticated by: Yani Leon MD. Ordering:SAUL Mckeon MD
== END 2019-03-14 18:58 | disposition home or self-care (01) ==
PROVIDERS: Emergency Provider Physician Assistant; PCP Family Medicine
DX: R41.82 Altered mental status, unspecified (principal); R91.8 Other nonspecific abnormal finding of lung field; F14.10 Cocaine abuse, uncomplicated; F11.10 Opioid abuse, uncomplicated
CPT/HCPCS: 36415; 80053; 80307; 93005; 96361; 96374; 96376; 99285; 70450; 71046; 80320; 80329; 81003; 83735; 84484; 85025; 93010; J2060

== ENCOUNTER 2019-07-20 20:20 | Emergency (ER) | payer MEDICAID, SELFPAY ==
[2019-07-20 20:33] VITALS: BP 154/92; PULSE 108; RESP 18; TEMP 36.7; O2SAT 108
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
--- NOTE | 2019-07-20 22:25 | NUR.NOTE ---
pt ate an egg salad sandwhich , he requested and received an orange . he is eating it now and anticipates going to [place] via ambulance to get his ring cut off . he saw the monomer recovery supervisor while in this ED Note:
[2019-07-20 22:39] VITALS: PULSE 100; RESP 18; O2SAT 98
== END 2019-07-20 22:45 | disposition short-term general hospital (02) ==
PROVIDERS: Emergency Provider Emergency Medicine; PCP Family Medicine
DX: T23.022A Burn of unspecified degree of single left finger (nail) except thumb, initial encounter (principal); X08.8XXA Exposure to other specified smoke, fire and flames, initial encounter; F11.10 Opioid abuse, uncomplicated
CPT/HCPCS: 99283

== ENCOUNTER 2019-11-07 17:17 | Outpatient (REF) | payer MEDICAID, SELFPAY ==
[2019-11-07 20:08] LABS: HCT 46.6 % (40.0-50.0); HGB 15.8 g/dL (13.5-17.5); Mean Corp. HGB Concentration 33.9 g/dL (32.0-36.0); Mean Corpuscular Hemoglobin 30.9 pg (27.0-33.0); Mean Corpuscular Volume 91.2 fL (80-95); Mean Platelet Volume 11.2 fL (8.0-11.0); Platelet Count 195 x1000/uL (130-400); RBC 5.11 m/cumm (4.50-6.00); RBC Distribution Width 13.3 % (11.8-14.1); White Blood Cell Count 9.12 k/cumm (4.4-10.8)
[2019-11-07 20:48] LABS: ALT 107 U/L (16-63); AST 51 U/L (15-37); Albumin 4.1 g/dL (3.4-5.0); Alkaline Phosphatase 65 U/L (46-116); Anion Gap 11.4 mmol/L (3-11); BUN 14 mg/dL (7-18); Bilirubin, Total 0.3 mg/dL (0.2-1.0); CO2 26.6 mmol/L (21.0-32.0); CREATININE 0.91 mg/dL (0.70-1.30); Calcium 8.9 mg/dL (8.5-10.1); Chloride 104 mmol/L (98-107); Glucose 90 mg/dL (74-106); Potassium 4.1 mmol/L (3.5-5.1); Sodium 142 mmol/L (136-145); Total Protein 7.4 g/dL (6.4-8.2)
[2019-11-11 13:22] LABS: Hepatitis A Antibody IgM Negative (Negative); Hepatitis B Core Antibody Negative (Negative); Hepatitis B surface Ag Negative (Negative); Hepatitis C Ab w Rflx HCV PCR Reactive (Negative)
== END 2019-11-07 17:37 ==
LOC: NCHCN 17:17
PROVIDERS: PCP Family Medicine; Visit Provider Family Medicine
DX: B18.2 Chronic viral hepatitis C (principal); R74.0 Nonspecific elevation of levels of transaminase and lactic acid dehydrogenase [LDH]
CPT/HCPCS: 80053; 85027; 86704; 86709; 86803; 87340; 87522

== ENCOUNTER 2020-02-20 10:53 | Outpatient (REF) | payer MEDICAID, SELFPAY ==
[2020-02-20 20:51] LABS: ALT 283 U/L (16-63); AST 148 U/L (15-37); Albumin 4.1 g/dL (3.4-5.0); Alkaline Phosphatase 74 U/L (46-116); Bilirubin, Direct 0.21 mg/dL (0.00-0.20); Bilirubin, Total 0.5 mg/dL (0.2-1.0); Total Protein 7.3 g/dL (6.4-8.2)
[2020-02-25 14:28] LABS: HCV RNA Qualitative Detected (Undetected)
== END 2020-02-20 11:13 ==
LOC: NCHCN 10:53
PROVIDERS: PCP Family Medicine; Visit Provider Family Medicine
DX: B18.2 Chronic viral hepatitis C (principal)
CPT/HCPCS: 80076; 87522

== ENCOUNTER 2020-03-08 01:13 | Outpatient (CLI) | payer MEDICAID, SELFPAY ==
[2020-03-08 15:31] LABS: HCT 43.5 % (40.0-50.0); HGB 15.1 g/dL (13.5-17.5); Mean Corp. HGB Concentration 34.7 g/dL (32.0-36.0); Mean Corpuscular Hemoglobin 31.8 pg (27.0-33.0); Mean Corpuscular Volume 91.6 fL (80-95); Mean Platelet Volume 11.6 fL (8.0-11.0); Platelet Count 168 x1000/uL (130-400); RBC 4.75 m/cumm (4.50-6.00); White Blood Cell Count 7.89 k/cumm (4.4-10.8)
[2020-03-08 15:53] LABS: CREATININE 1.01 mg/dL (0.70-1.30); TSH (W/Ref FT4) 1.17 uIU/mL (0.36-3.74)
[2020-03-09 09:11] LABS: HBs Antibody, Quant <3.1 mIU/mL (See Note); Hepatitis B Surface Ab Negative (See Note)
[2020-03-09 11:32] LABS: HIV-1/2 Ag & Ab Screen Negative (Negative); Hep A Total Ab w Rflx IgM Negative (Negative)
[2020-03-10 13:29] LABS: ALT 267 U/L (7-55); ActiTest Grade A3; ActiTest Interpretation severe activity; ActiTest Score 0.94; Alpha-2-Macroglobulin 389 mg/dL (100 - 280); Apoliprotein A1 134 mg/dL (>=120); Bilirubin, Total 0.6 mg/dL (<=1.2); FibroTest Interpretation severe fibrosis; FibroTest Score 0.83; FibroTest Stage F4; GGT 56 U/L (8 - 61); Haptoglobin 26 mg/dL (30 - 200)
[2020-03-11 06:51] LABS: Testosterone, Total 990 ng/dL (240-950)
== END 2020-03-08 01:33 ==
PROVIDERS: PCP Family Medicine; Visit Provider Family Medicine
DX: B18.2 Chronic viral hepatitis C (principal); R53.83 Other fatigue; Z11.4 Encounter for screening for human immunodeficiency virus [HIV]; Z01.84 Encounter for antibody response examination
CPT/HCPCS: 36415; 81596; 84403; 85027; 86706; 86709; 87389; 82565; 84443

== ENCOUNTER 2020-03-08 01:41 | Outpatient (CLI) | payer MEDICAID, SELFPAY ==
--- NOTE | 2020-03-08 14:00 | NS.NUTBLAN_ITS ---
49 y/o male w/ hx opiod and ETOH addiction . Comes to [facility] for outpatient nutritional counseling r/t wellness and preventative care. He is currently in recovery and reports 6 mos of continuous sobriety. Adiel he previously had 11 years sober prior to his last relapse. He is running ~3 miles /day for his Physical activity and doing yoga and meditation to help with documented hx anxiety and bi-polar disorder.. Lives in a sober house here in town and has access to cooking facilities. On MVI, B-12, Vit C, B-complex to cover micro- nutrient needs. On melatonin to mitigate Hx insomnia. He reports preparing home- cooked meals with intermittent cravings for sugary junks foods and processed foods. Adiel is concerned about being overweight and shows sincere motivation to pursue a healthy eating and fitness regimen to promote long-term recovery. His BMI is currently 26.4. Intervention: Reviewed macro and micro nutrient s and desired percentages. Provided references on Sports nutrition, explained the importance of NaCl and hydration. Discussed proper use of isotonic sports drinks and nutrient timing for peak performance. Provided education and written material from [facility] on [employer] for sobriety. Explained the effects of refined sugar on neurotransmitters to help Adiel understand his cravings. Assisted Adiel in enrolling in [facility] for 12 weeks of free fresh local produce with recipes to incorporate phytochemicals in his diet. Set up follow up visit for Adiel in 30 days to review food record provided and assess lifestyle/diet changes, lean body mass and BMI.
== END 2020-03-08 02:01 ==
PROVIDERS: PCP Family Medicine; Visit Provider Family Medicine
DX: F11.10 Opioid abuse, uncomplicated (principal); F10.10 Alcohol abuse, uncomplicated; Z71.3 Dietary counseling and surveillance
CPT/HCPCS: 97802

== ENCOUNTER 2020-04-07 17:00 | Outpatient (CLI) | payer MEDICAID, SELFPAY ==
--- NOTE | 2020-04-07 13:00 | NS.NUTBLAN_ITS ---
Adiel returns for outpatient F/U for nutrition counseling. His main concern today is his weight. He continues his workouts, attending AA regularly, and cooking healthy meals. He has been utilizing the [employer] program for [employer] produce to help with phytochemical and micronutrient needs. He continues on MVI. He was having issues with product ID ( fresh fennel etc..) and we reviewed the uses and cooking methods. His weight on 04/07 was 162lb which puts him at 114% IBW. We calculated his BMI ( 26), and assessed his daily k/eddie, fluid and protein needs as was agreed per his last visit. This RD encouraged him not to ruminate on the numbers and continue his regimen working toward a goal weight of ~155-160 and increase LBM with intermittent days of weight training and running with Sundays off. We reviewed hydration and electrolyte replenishment needs. He reports that he continues to have concerns about the potential for binging on junk food and we discussed the work of Dr. Keo Moya regarding fructose and refined sugar and its effect on neurotransmitters. Adiel was able to understand some of the similarities between his sugar cravings and his experience with opioid and ETOH addiction. We reviewed his workout program from a sports nutrition standpoint and discussed nutrient timing for peak performance and this RD recommended when to eat his CHO and how to use isotonic sports drinks appropriately. Adiel will return next moth for F/U support and encouragement for his nutrition related support needs as he continues his sober lifestyle and develops coping skills for healthy living.
== END 2020-04-07 17:20 ==
PROVIDERS: PCP Family Medicine; Visit Provider Nurse Practitioner Family
DX: E63.8 Other specified nutritional deficiencies (principal); Z71.3 Dietary counseling and surveillance; R63.8 Other symptoms and signs concerning food and fluid intake
CPT/HCPCS: 97803

== ENCOUNTER 2020-04-13 11:31 | Outpatient (REF) | payer MEDICAID, SELFPAY ==
[2020-04-13 18:27] LABS: Prothrombin Time 10.2 sec (9.3-11.0)
[2020-04-17 01:20] LABS: HCV Genotype 1a (Undetected)
== END 2020-04-13 11:51 ==
LOC: NCHCN 11:31
PROVIDERS: PCP Family Medicine; Visit Provider Family Medicine
DX: B18.2 Chronic viral hepatitis C (principal); K74.0 Hepatic fibrosis
CPT/HCPCS: 85610; 87521

== ENCOUNTER 2020-08-03 10:24 | Emergency (ER) | payer MEDICAID, SELFPAY ==
[2020-08-03 10:34] VITALS: BP 153/100; PULSE 93; RESP 16; TEMP 36.1; O2SAT 100
--- NOTE | 2020-08-03 10:38 | W.ED.GENAD ---
Discharge Plan Disposition Patient Disposition: HOME Condition: Stable Discharge Details Clinical Impression: Sensation of swollen throat, Chronic sore throat Primary Care Provider: Scotty Lawrence ED Provider: Linda Kim Home Meds and New Rx's Prescriptions: New prednisone 20 mg tablet See Rx Instructions .ROUTE .COMPLEX Qty: 12 RF: 0 Continued trazodone 50 mg tablet 50 mg PO HS RF: 0 Discharge Instructions Instructions: Tonsillitis (ED) Additional Instructions: Drink plenty of fluids and get plenty of rest. Alternate tylenol and motrin as needed and directed for pain. Take the steroids until finished. Continue to gargle with salt water. You will receive a call from care management regarding a follow-up appointment with the ear nose and throat (ENT) doctor for further evaluation. You were also given ENT contact information on your paperwork so that you may call to confirm this appointment. Return immediately to the emergency department if you develop any worsening or new concerning symptoms such as fever, increased pain, swelling or difficulty swallowing. Referrals: Biju Momin DO [OSTEOPATHIC DOCTOR] - Clive Seo MD [ [facility] STAFF PHYSICIAN] - Discharge Data Discharge Date/Time-TO BE ENTERED AT DEPARTURE: 08/03/20 11:24 Discharge Physician: Linda Kim Medical Decision Making 49-year-old male with a history of hepatitis C, former alcohol and IV drug abuse currently in remission and clinically sober status post recent rehab stay presents for sensation of posterior throat discomfort and fullness for the past 2 months. Patient appears comfortable and nontoxic. He is speaking in full sentences. No trismus, drooling, submandibular swelling, peritonsillar abscess. Normal oropharynx. No lymphadenopathy. Rapid strep negative. Presentation not consistent with acute bacterial, viral or fungal process such as candidiasis. Do not see indication for another trial of antifungal medication. Consider esophagitis, polyp or mass. Recommend further evaluation by ENT for nasopharyngolaryngoscopy. Discussed with patient that we could trial with a course of steroids for symptomatic treatment although he needs further evaluation with ENT. Discussed the possibility of obtaining lab work and imaging but patient would rather trial with a course of steroids at this time. Patient placed on care management list to arrange for a follow-up appointment with ear, nose and throat. He is advised to return here if he develops any worsening symptoms such as fever, worsening pain or difficulty swallowing. Medical Records Medical records reviewed: Yes I reviewed the patient's medical records. HPI General Mode of arrival: ambulatory. Date/Time Provider Initiated Documentation: 08/03/20 10:25. Limitations to Documentation: no limitations. Information obtained by: patient. HPI Narrative: Pt is a 49yo M with a history of hepatitis C, alcohol and IV drug use that are now in remission and he is clinically sober status post recent rehab stay presents for sensation of throat discomfort and swelling for the past 2 months. Patient states while in rehab he was seen by the medical staff and treated with nystatin for possible fungal infection without any relief of the symptoms. He states he then followed up with his PCP and was advised to use salt water gargles. He feels that his symptoms have not improved and he is concerned about the possible cause. He denies any significant pain but does admit to some discomfort and sensation of Related Data Home Medications Medication Instructions Recorded Confirmed prednisone See Rx Instructions .ROUTE 08/03/20 .COMPLEX #12 tab trazodone 50 mg PO HS 08/03/20 08/03/20 Previous Rx's Medication Instructions Recorded prednisone See Rx Instructions .ROUTE 08/03/20 .COMPLEX #12 tab Allergies Allergy/AdvReac Type Severity Reaction Status Date / Time No Known Drug Allergies Allergy Unverified 08/03/20 10:44 General RENETTA: 3 Review of Systems All systems reviewed & are unremarkable except as noted in HPI and below Constitutional Constitutional: Reports as per HPI, Denies chills and Denies fever(s) Eyes Eyes: Denies blurry vision ENT Ears, Nose, Mouth, and Throat: Denies dizziness, Reports sore throat (discomfort) and Reports throat swelling Cardiovascular Cardiovascular: Denies chest pain and Denies dyspnea Respiratory Respiratory: Denies cough and Denies dyspnea Gastrointestinal Gastrointestinal: Denies abdominal pain, Denies diarrhea and Denies vomiting Genitourinary Genitourinary: Denies hematuria and Denies dysuria Musculoskeletal Musculoskeletal: Denies back pain and Denies numbness Integumentary/Breasts Skin/Breast: Denies lesions and Denies rash Neurologic Neurologic: Denies dizziness, Denies localized weakness and Denies numbness Allergic/Immunologic Allergic/Immunologic: Reports throat swelling [facility] Medical History Alcohol abuse Hepatitis C IV drug abuse Surgical History liver biopsy Family History Mother , breast CA Personal history of malignant neoplasm Father , alcoholism Alcohol abuse Social History Smoking/Tobacco Use Status: Current every day Smoking risk assessment performed?: Yes Alcohol Intake: never Drug use: Daily Substance use type: crack/cocaine and heroin Details: current remission after rehab 08/03/20 Do you feel safe at home: Yes Do you feel safe in your relationship?: Yes Exam Const General: cooperative, healthy appearing and no acute distress HENMT Head: normal to inspection Ears: hearing grossly normal bilaterally, external ears normal and TM's normal bilaterally General nose exam: external nose normal Face and sinus: normal facial exam Mouth: oral mucosae normal, no drooling and no trismus Teeth and gingiva: dentition normal Throat: posterior oropharynx normal Eyes General: appearance normal, both eyes and all related structures Neck Neck: normal visual inspection, full ROM, no lymphadenopathy, no meningeal signs, trachea midline, supple, no anterior neck swelling and No submandibular swelling Resp Effort & Inspection: normal respiratory effort and able to speak in complete sentences Cardio Rate: regular rate Skin General skin exam: no rashes or lesions noted Neuro General: patient alert, patient awake and patient oriented x3 Motor: muscle tone normal throughout Extrem General: normal to inspection and full ROM Psych Appearance: grossly normal Affect: normal affect
--- NOTE | 2020-08-03 11:28 | NUR.NOTE ---
Referral to Care Management to expedite appt with ENT for throat swelling.Nursing Note:
--- NOTE | 2020-08-03 13:44 | CMPROGNOTE_ITS ---
- If Service Date Differs Date of service: 08/03/20 Time of Service: 13:44 Care Management Progress Note Adiel is seen in the ED for throat swelling. At the request of Dr. Kim, ED provider, BIBIANA coordinates a referral to [facility] to assist Adiel in obtaining an appointment.
== END 2020-08-03 11:24 | disposition home or self-care (01) ==
PROVIDERS: Emergency Provider Physician Assistant; PCP Family Medicine
DX: R09.89 Other specified symptoms and signs involving the circulatory and respiratory systems (principal); J31.2 Chronic pharyngitis
CPT/HCPCS: 87880; 99283; 87081

== ENCOUNTER 2021-04-11 13:48 | Outpatient (REF) | payer MEDICAID, SELFPAY ==
[2021-04-11 15:41] LABS: HCT 46.9 % (40.0-50.0); HGB 16.2 g/dL (13.5-17.5); MCH 31.9 pg (27.0-33.0); MCHC 34.5 % (32.0-36.0); MCV 92.3 fL (80-95); Platelet Count 201 10^3/uL (130-400); RBC 5.08 10^6/uL (4.36-5.78); RDW 12.5 % (11.8-14.1); RDW-SD 42.6 fL; WBC 6.99 10^3/uL (4.4-10.8)
[2021-04-11 15:53] LABS: ALT 113 U/L (16-63); AST 61 U/L (15-37); Albumin 4.3 g/dL (3.4-5.0); Alkaline Phosphatase 63 U/L (46-116); Anion Gap 10.7 mmol/L (3-11); BUN 12 mg/dL (7-18); Bilirubin, Total 0.4 mg/dL (0.2-1.0); CO2 26.3 mmol/L (21.0-32.0); Chloride 104 mmol/L (98-107); Glucose 93 mg/dL (74-106); Potassium 4.4 mmol/L (3.5-5.1); Sodium 141 mmol/L (136-145); Total Protein 7.8 g/dL (6.4-8.2)
[2021-04-12 11:20] LABS: Hepatitis B Surface Ag Negative (Negative)
[2021-04-12 12:06] LABS: HIV-1/2 Ag & Ab Screen Negative (Negative)
[2021-04-12 12:22] LABS: Hep B Core Antibody Negative (Negative)
[2021-04-13 16:09] LABS: HCV RNA Detection Quantitative 351000 IU/mL (Undetected); HCV RNA Qualitative Detected (Undetected)
== END 2021-04-11 13:49 | disposition home or self-care (01) ==
LOC: NCHCN 13:48
PROVIDERS: PCP Family Medicine; Visit Provider Family Medicine
DX: B18.2 Chronic viral hepatitis C (principal)
CPT/HCPCS: 80053; 85027; 86704; 87340; 87389; 87522

== ENCOUNTER 2021-05-26 20:53 | Emergency (ER) | payer MEDICAID, SELFPAY ==
[2021-05-26] VITALS (11 sets, daily range): BP systolic 112–145; BP diastolic 69–93; PULSE 78–106; RESP 7–16; TEMP 36.6; O2SAT 88–100
--- NOTE | 2021-05-26 21:00 | DI.CT_ITS ---
Exam(s) CT HEAD WO EXAM: CT HEAD WO CLINICAL HISTORY: altered, OD?, Stroke?. TECHNIQUE: Imaging Protocol: Axial computed tomography images with coronal and sagittal reformatted images were created and reviewed COMPARISON: No exams were available for comparison FINDINGS: Ventricles and Extra axial spaces: Normal in size and morphology for the patient's age. Hemorrhage: None. Cerebral parenchyma: Normal. Midline shift: None. Brainstem/Cerebellum: Normal. Calvarium: Normal. Visualized Paranasal sinuses/Mastoids: Clear. Soft Tissues: Unremarkable. IMPRESSION: No acute intracranial process. RADIATION DOSE DELIVERED: 949.46mGy.cm Total DLP DATA REPOSITORY: All CT scans at this facility are submitted to the National Radiology Data Registry (NRDR) Dose Index Registry (DIR) with the [employer] (ACR). RADIATION OPTIMIZATION: All CT scans at this facility use at least one of these dose optimization te chniques: automated exposure control; mA and/or kV adjustment per patient size (includes targeted exa ms where dose is matched to clinical indication); or iterative reconstruction.
--- NOTE | 2021-05-26 21:00 | RT.EKG_ITS ---
APPROVED REPORT Exam: Resting ECG Reason for Exam: sob Patient Location: E HR:94 bpm ECG Measurements Heart Rate 94 AXIS FL 146 P 79 QRSd 86 QRS 92 QT 377 T 40 QTc 473 Conclusion Sinus rhythm...normal P axis, V-rate 60- 99 Physician: no stemi, no significant st elevation or depressions, intervals normal
--- NOTE | 2021-05-26 21:10 | ED.GENADUL_ITS ---
Discharge Plan Disposition Patient Disposition: HOME Condition: Good Discharge Details Clinical Impression: Accidental overdose Primary Care Provider: Scotty Lawrence ED Provider: Kyree Coleman Home Meds and New Rx's Prescriptions: Continued trazodone 50 mg tablet 50 mg PO HS RF: 0 prednisone 20 mg tablet See Rx Instructions .ROUTE .COMPLEX Qty: 12 RF: 0 Discharge Instructions Additional Instructions: At this time I suspect that your episode was secondary to the medications you took. As we always recommend, it is best not to take extra medications or medications that have not been prescribed for your own safety. If you notice any worsening of your symptoms, or any new symptoms such as vomiting, diarrhea, fever, chills, shortness of breath, chest pain, numbness, weakness, or fainting , please return immediately to the emergency department for reevaluation. Please follow up with your primary care provider as soon as possible for reassessment and reevaluation. As always, it was a pleasure participating in your medical care today. Referrals: Scotty Lawrence [Primary Care Provider] - Medical Decision Making 50-year-old male with a past medical history of hepatitis C currently being treated, previous IV and illicit drug use, previous alcohol use, presents today for evaluation of altered level of consciousness. Per EMS/significant other the patient was noticed by significant other to be altered, turning blue and having some difficulty breathing. When EMS arrived there was no difficulty breathing but the patient was notably altered, slurring his words. Patient kept stating that he took 3 clonidine pills. Patient was brought to the ER for further assessment. Blood glucose unremarkable, twelve-lead unremarkable. Currently the patient admits to taking 3 extra clonidine pills, but denies drinking any alcohol or taking any other drugs. He denies any homicidal or suicidal ideations. He has no other complaints at this time. He denies headache, numbness, tingling, or weakness. Physical exam demonstrates constricted pupils, dry mucous membranes, small amount of blood in the mouth. No hyperreflexia, no focal neurologic deficits. Patient does appear slightly intoxicated though. Vital signs stable aside from minimal tachycardia. Uncertain as to the exact etiology, but mild clonidine use is on the differential. Seizure is also in the differential with stroke but these are less likely. With no focal neurologic deficits at this time, and the differential being broad we will hold off in any TPA at this time as there is no gross indication for it. We will get a CT scan of the head, rehydrate, evaluate for intoxicants, monitor closely and reassess. 11:41 PM Patient's vital signs have normalized, he is feeling much better and would like to go home. Patient now states that there may have been a few opioid pills in the unmarked pill bottle that he took that he thought were clonidine's. This would correlate well clinically with his pinpoint pupils that he initially had. Patient during his entire stay demonstrated no drop in his O2 saturations, demonstrated a normal stable mental status. Vital signs remained stable. Laboratory work-up shows an elevated white count, which is likely reactive based on prior labs and his predilection to getting an elevated white count and acute stress scenarios like this. He has no fever or chills. No murmur, lung sounds are clear, symptoms inconsistent with bacteremia, or pneumonia. Initial VBG demonstrated a slightly elevated PCO2 and a slightly diminished pH, anion gap was unremarkable though. Potassium minimally low at 3.3. The remainder of his electrolytes were otherwise relatively benign. Thyroid function, good, ammonia level normal, urine drug screen negative for any significant abnormalities. Alcohol level negative. After prolonged observation here the patient remained stable. Significant other is at bedside. Patient stable for discharge. Discussed red flags which to return. Patient continues to deny any homicidal or suicidal ideations. Patient is medically stable at this time. I have extensively reviewed the treatment plan and discharge instructions with the patient and their family. I have addressed all patient concerns at this time. T he patient and family was made aware of what symptoms to monitor for that would warrant a return to the emergency department. Discussed the plan with the patient and family, they demonstrate verbal understanding and agreement with our assessment and plan at this time. The documentation in this chart was dictated using [employer] dictation software. Please excuse any dictation errors. FINDINGS: Brain: Normal. No hemorrhage. Unremarkable white matter. No mass effect. Cerebral ventricles: No ventriculomegaly. Paranasal sinuses: Visualized sinuses are unremarkable. No fluid levels. Mastoid air cells: Visualized mastoid air cells are well aerated. Bones/joints: Unremarkable. No acute fracture. Soft tissues: Unremarkable. IMPRESSION: No acute intracranial abnormality. Thank you for allowing us to participate in the care of your patient. Dictated and Authenticated by: Mynor Hinton MD 05/26/2021 10:31 PM Eastern Time ([place] & [place]) FINDINGS: ANTERIOR CIRCULATION: Right internal carotid artery: Unremarkable. Intracranial segment is patent with no significant stenosis. No aneurysm. Right middle cerebral artery: Unremarkable. No occlusion or significant stenosis. No aneurysm. Right anterior cerebral artery: Unremarkable. No occlusion or significant stenosis. No aneurysm. Left internal carotid artery: Unremarkable. Intracranial segment is patent with no significant stenosis. No aneurysm. Left middle cerebral artery: Unremarkable. No occlusion or significant stenosis. No aneurysm. Left anterior cerebral artery: Unremarkable. No occlusion or significant stenosis. No aneurysm. POSTERIOR CIRCULATION: Right vertebral artery: Unremarkable. No occlusion or significant stenosis. No aneurysm. Left vertebral artery: Unremarkable. No occlusion or significant stenosis. No aneurysm. Basilar artery: Unremarkable. No occlusion or significant stenosis. No aneurysm. Right posterior cerebral artery: Unremarkable. No occlusion or significant stenosis. No aneurysm. Left posterior cerebral artery: Unremarkable. No occlusion or significant stenosis. No aneurysm. Brain: No definite mass, mass effect, or midline shift. Cerebral ventricles: No ventriculomegaly. Bones/joints: Unremarkable. No acute fracture. Soft tissues: Unremarkable. IMPRESSION: No large vessel stenosis or occlusion. FINDINGS: Right common carotid artery: No stenosis. No dissection or occlusion. Right internal carotid artery: No stenosis of the extracranial segment. No dissection or occlusion. Right external carotid artery: No occlusion or stenosis of the origin. Left common carotid artery: No stenosis. No dissection or occlusion. Left internal carotid artery: No stenosis of the extracranial segment. No dissection or occlusion. Left external carotid artery: No occlusion or stenosis of the origin. Right vertebral artery: No stenosis. No dissection or occlusion. Left vertebral artery: No stenosis. No dissection or occlusion. Soft tissues: Normal. No significant soft tissue swelling. Bones/joints: No acute fracture. IMPRESSION: No stenosis or occlusion. REFERENCES: NASCET CRITERIA. The degree of internal carotid artery stenosis is based on NASCET criteria. Normal is no stenosis. Mild is less than 50% stenosis. Moderate is 50-69% stenosis. Severe is 70% to 99% stenosis. Total occlusion is no detectable patent lumen. Thank you for allowing us to participate in the care of your patient. Dictated and Authenticated by: Mynor Hinton MD 05/26/2021 10:38 PM Eastern Time ([place] & [place]) HPI General Date/Time Provider Initiated Documentation: 05/26/21 20:53 . HPI Narrative: 50-year-old male with a past medical history of hepatitis C currently being treated, previous IV and illicit drug use, previous alcohol use, presents today for evaluation of altered level of consciousness. Per EMS/significant other the patient was noticed by significant other to be altered, turning blue and having some difficulty breathing. When EMS arrived there was no difficulty breathing but the patient was notably altered, slurring his words. Patient kept stating that he took 3 clonidine pills. Patient was brought to the ER for further assessment. Blood glucose unremarkable, twelve-lead unremarkable. Currently the patient admits to taking 3 extra clonidine pills, but denies drinking any alcohol or taking any other drugs. He denies any homicidal or suicidal ideations. He has no other complaints at this time. He denies headache, numbness, tingling, or weakness. Related Data Home Medications Medication Instructions Recorded Confirmed prednisone See Rx Instructions .ROUTE 08/03/20 .COMPLEX #12 tab trazodone 50 mg PO HS 08/03/20 08/03/20 Previous Rx's Medication Instructions Recorded prednisone See Rx Instructions .ROUTE 08/03/20 .COMPLEX #12 tab Allergies Allergy/AdvReac Type Severity Reaction Status Date / Time No Known Drug Allergies Allergy Unverified 05/26/21 21:28 General Stated Complaint: AMS/LOC RENETTA: 2 Review of Systems All systems reviewed & are unremarkable except as noted in HPI and below PFSH Medical History Alcohol abuse Hepatitis C IV drug abuse Surgical History liver biopsy Family History Mother , breast CA Personal history of malignant neoplasm Father , alcoholism Alcohol abuse Social History Smoking/Tobacco Use Status: Current every day Tobacco Type: cigarettes Smoking risk assessment performed?: Yes Alcohol Intake: never Drug use: Daily Substance use type: crack/cocaine and heroin Details: current remission after rehab 08/03/20 Do you feel safe at home: Yes Do you feel safe in your relationship?: Yes Exam Narrative Exam Narrative: 1.Const: Well-nourished, Well-developed, appearing stated age 2.Eyes: PERRL however they are very constricted, no conjunctival injection, and symmetrical lids. 3.ENT: Atraumatic external nose and ears. Notably dry MM. Neck: Symmetric, trachea midline, No thyromegaly. Tongue does demonstrate a very small bite sahara, there is some dried blood noted in the mouth. No active bleeding. 4.CVS: +S1/S2, No murmurs or gallops. Peripheral pulses 2+ and equal in all extremities. Brisk capillary refill in all extremities. 5.RESP: Unlabored respiratory effort. Clear to auscultation bilaterally. No wheezes rales or rhonchi 6.GI: Soft, Nontender/Nondistended, No hepatosplenomegaly. No guarding or rebound. 7.MSK: Normocephalic/Atraumatic, Extremities w/o deformity or ttp No cyanosis or clubbing, Normal movement of all extremities, no hyperreflexia. No leadpipe rigidity. 8.Skin: Warm, Dry. No rashes or lesions. 9.Neuro: mixer pigment II-XII grossly intact. Sensation grossly intact, no focal neurologic deficits. All 6 cardinal planes of vision are fully intact. No evidence of rotatory or vertical nystagmus. The patient demonstrated a normal [id number], good dexterity. There was no evidence of dysdiadochokinesia. Psensation was intact bilaterally as well as muscle strength bilaterally for all extremities. Patient was able to verbalize butter cup with no slurring, or miss pronunciation. 10.Psych: (AAO) x3. However he does appear slightly intoxicated. Course Vital Signs Vital signs: Vital Signs Temperature 36.6 C 05/26/21 20:56 Pulse 101 H 05/26/21 20:56 Respiratory Rate 11 L 05/26/21 20:56 Blood Pressure 145/89 H 05/26/21 20:56 Pulse Oximetry 88 L 05/26/21 20:56 Temperature 36.6 C 05/26/21 20:56 Temperature Source Temporal Artery Scan 05/26/21 20:56 Pulse 101 H 05/26/21 20:56 Respiratory Rate 11 L 05/26/21 20:56 Blood Pressure 145/89 H 05/26/21 20:56 Blood Pressure Position Sitting 05/26/21 20:56 Pulse Oximetry 88 L 05/26/21 20:56 Oxygen Delivery Method Room Air 05/26/21 20:56 Oxygen Flow Rate 0 05/26/21 20:56 Pain Level 0 05/26/21 20:56
[2021-05-26] MEDS: Omnipaque 350 MG/ML 100 ML BTL IJ (21:28)
[2021-05-26] MEDS: Normal Saline 1,000 ML 1000 ML IV ×2 (21:30→23:04)
[2021-05-26 21:33] LABS: Abs Immature Grans 0.14 10^3/uL (0.0-0.06); Absolute Basophil Count 0.06 10^3/uL (0.0-0.2); Absolute Eosinophil Count 0.04 10^3/uL (0.0-0.7); Absolute Lymphocyte Count 2.04 10^3/uL (1.2-3.4); Absolute Monocyte Count 0.96 10^3/uL (0.1-0.8); Absolute Neutrophil Count 15.98 10^3/uL (1.2-6.7); BE (Venous) -3 mmol/L (-2-3); Basophils % 0.3; Eosinophils % 0.2; HCO3 (Venous) 25 mmol/L (23-28); HCT 48.5 % (40.0-50.0); HGB 16.3 g/dL (13.5-17.5); Immature Grans % 0.7; Lymphocytes % 10.6; MCHC 33.6 % (32.0-36.0); MCV 92.4 fL (80-95); Neutrophils % 83.2; Nucleated RBC 0 %; O2 Sat (Venous) 91 %; Platelet Count 198 10^3/uL (130-400); RBC 5.25 10^6/uL (4.36-5.78); RDW-SD 44.6 fL; TCO2 (Venous) 22 mmol/L (24-29); WBC 19.21 10^3/uL (4.4-10.8); pCO2 (Venous) 55 mmHg (41-51); pH (Venous) 7.26 (7.31-7.41); pO2 (Venous) 62 mmHg
[2021-05-26 21:51] LABS: Ammonia 28 umol/L (11-32)
[2021-05-26 21:59] LABS: ALT 46 U/L (16-63); AST 30 U/L (15-37); Albumin 4.1 g/dL (3.4-5.0); Alkaline Phosphatase 64 U/L (46-116); Anion Gap 12.3 mmol/L (3-11); BUN 13 mg/dL (7-18); Bilirubin, Total 0.3 mg/dL (0.2-1.0); CO2 24.7 mmol/L (21.0-32.0); CREATININE 1.3 mg/dL (0.70-1.30); Calcium 8.2 mg/dL (8.5-10.1); Chloride 103 mmol/L (98-107); ETHANOL BLOOD < 3.0 mg/dL (<3); Estimated GFR 57.97 (mL/min/1.73m2); Glucose 219 mg/dL (74-106); Potassium 3.3 mmol/L (3.5-5.1); Sodium 140 mmol/L (136-145); TSH (W/Ref FT4) 2.96 uIU/mL (0.36-3.74); Total Protein 7.9 g/dL (6.4-8.2)
--- NOTE | 2021-05-26 22:03 | DI.CT_ITS ---
Exam(s) CT BRAIN NECK CTA EXAM: CT BRAIN NECK CTA CLINICAL HISTORY: ALTERED, ?OD, STROKE?. TECHNIQUE: Imaging Protocol: Axial CT angiography was performed with multi-slice acquisition and mu lti-planar and/or 3D reconstructions. CONTRAST MATERIAL: Intravenous: Omnipaque 350 Contrast volume:85 ml COMPARISON: CT CT HEAD WO from 05/26/2021 FINDINGS: CT Head W/O and W contrast: Ventricles and Extra axial spaces: Normal in size and morphology for the patient's age. Hemorrhage: None. Cerebral parenchyma: Normal. Midline shift: None. Brainstem/Cerebellum: Normal. Calvarium: Normal. Visualized Paranasal sinuses/Mastoids: Clear. Soft Tissues: Unremarkable. Enhancement: Normal. CTA Brain W: Internal Carotid Arteries: Petrous: Normal. Cavernous: Normal. Cerebral: Normal. Middle Cerebral Arteries: Right: No aneurysm, occlusion or significant stenosis. Left: No aneurysm, occlusion or significant stenosis. Anterior Cerebral Arteries: Right: No aneurysm, occlusion or significant stenosis. Left: No aneurysm, occlusion or significant stenosis. Posterior cerebral Arteries: Right: No aneurysm, occlusion or significant stenosis. Left: No aneurysm, occlusion or significant stenosis. Vertebral Arteries: Right: No aneurysm, occlusion or significant stenosis. Left: No aneurysm, occlusion or significant stenosis. Basilar Artery: No aneurysm, occlusion or significant stenosis. CTA Neck W: Common Carotid: Right: No aneurysm, occlusion or significant stenosis. Left: Mild calcific plaque common carotid bulb. No aneurysm, occlusion or significant stenosis. External Carotid: Right: No aneurysm, occlusion or significant stenosis. Left: No aneurysm, occlusion or significant stenosis. Internal Carotid: Right: No aneurysm, occlusion or significant stenosis. Left: No aneurysm, occlusion or significant stenosis. Vertebral Artery: Right: No aneurysm, occlusion or significant stenosis. Left: No aneurysm, occlusion or significant stenosis. Lung Apices: Motion. No gross abnormality. Bones: Degenerative changes in the cervical spine, greatest at C5-6. Soft Tissues: Normal. IMPRESSION: 1. Normal CTA examination of the [place] [facility] [place]. 2. Unremarkable CT Head. 3. Mild calcific plaque left common carotid bulb, otherwise normal CTA examination of the neck. RADIATION DOSE DELIVERED: 1,180.02mGy.cm Total DLP DATA REPOSITORY: All CT scans at this facility are submitted to the National Radiology Data Registry (NRDR) Dose Index Registry (DIR) with the [employer] (ACR). RADIATION OPTIMIZATION: All CT scans at this facility use at least one of these dose optimization te chniques: automated exposure control; mA and/or kV adjustment per patient size (includes targeted exa ms where dose is matched to clinical indication); or iterative reconstruction.
--- NOTE | 2021-05-26 22:31 | DI.VRAD_ITS ---
PROCEDURE INFORMATION: Exam: CT Head Without Contrast Exam date and time: 05/26/2021 9:13 PM Age: 50 years old Clinical indication: Altered mental status/memory loss; Additional info: Head without. . . Cta head and neck sent seperately TECHNIQUE: Imaging protocol: Computed tomography of the head without contrast. COMPARISON: CT HEAD WO 03/14/2019 5:15 PM FINDINGS: Brain: Normal. No hemorrhage. Unremarkable white matter. No mass effect. Cerebral ventricles: No ventriculomegaly. Paranasal sinuses: Visualized sinuses are unremarkable. No fluid levels. Mastoid air cells: Visualized mastoid air cells are well aerated. Bones/joints: Unremarkable. No acute fracture. Soft tissues: Unremarkable. IMPRESSION: No acute intracranial abnormality. Dictated and Authenticated by: Mynor Hinton MD. Ordering:BRIT Adorno MD
--- NOTE | 2021-05-26 22:38 | DI.VRAD_ITS ---
PROCEDURE INFORMATION: Exam: CT Angiography Head With Contrast, Arteriography Exam date and time: 05/26/2021 9:55 PM Age: 50 years old Clinical indication: Other: Altered, od? Stroke? ; Additional info: Head without. . . Cta head and neck sent seperately TECHNIQUE: Imaging protocol: Computed tomography angiography of the head with contrast. Exam focused on the arteries. 3D rendering (Not supervised by radiologist): MIP and/or 3D reconstructed images were created by the technologist. Contrast material: OMNIPAQUE 350; Contrast volume: 85 ml; Contrast route: INTRAVENOUS (IV); COMPARISON: CT HEAD WO 05/26/2021 9:43 PM FINDINGS: ANTERIOR CIRCULATION: Right internal carotid artery: Unremarkable. Intracranial segment is patent with no significant stenosis. No aneurysm. Right middle cerebral artery: Unremarkable. No occlusion or significant stenosis. No aneurysm. Right anterior cerebral artery: Unremarkable. No occlusion or significant stenosis. No aneurysm. Left internal carotid artery: Unremarkable. Intracranial segment is patent with no significant stenosis. No aneurysm. Left middle cerebral artery: Unremarkable. No occlusion or significant stenosis. No aneurysm. Left anterior cerebral artery: Unremarkable. No occlusion or significant stenosis. No aneurysm. POSTERIOR CIRCULATION: Right vertebral artery: Unremarkable. No occlusion or significant stenosis. No aneurysm. Left vertebral artery: Unremarkable. No occlusion or significant stenosis. No aneurysm. Basilar artery: Unremarkable. No occlusion or significant stenosis. No aneurysm. Right posterior cerebral artery: Unremarkable. No occlusion or significant stenosis. No aneurysm. Left posterior cerebral artery: Unremarkable. No occlusion or significant stenosis. No aneurysm. Brain: No definite mass, mass effect, or midline shift. Cerebral ventricles: No ventriculomegaly. Bones/joints: Unremarkable. No acute fracture. Soft tissues: Unremarkable. IMPRESSION: No large vessel stenosis or occlusion. PROCEDURE INFORMATION: Exam: CT Angiography Neck With Contrast Exam date and time: 05/26/2021 9:55 PM Age: 50 years old Clinical indication: Other: Altered, od? Stroke? ; Additional info: Head without. . . Cta head and neck sent seperately TECHNIQUE: Imaging protocol: Computed tomography angiography of the neck with contrast. 3D rendering (Not supervised by radiologist): MIP and/or 3D reconstructed images were created by the technologist. Contrast material: OMNIPAQUE 350; Contrast volume: 85 ml; Contrast route: INTRAVENOUS (IV); COMPARISON: CT HEAD WO 05/26/2021 9:43 PM FINDINGS: Right common carotid artery: No stenosis. No dissection or occlusion. Right internal carotid artery: No stenosis of the extracranial segment. No dissection or occlusion. Right external carotid artery: No occlusion or stenosis of the origin. Left common carotid artery: No stenosis. No dissection or occlusion. Left internal carotid artery: No stenosis of the extracranial segment. No dissection or occlusion. Left external carotid artery: No occlusion or stenosis of the origin. Right vertebral artery: No stenosis. No dissection or occlusion. Left vertebral artery: No stenosis. No dissection or occlusion. Soft tissues: Normal. No significant soft tissue swelling. Bones/joints: No acute fracture. IMPRESSION: No stenosis or occlusion. REFERENCES: NASCET CRITERIA. The degree of internal carotid artery stenosis is based on NASCET criteria. Normal is no stenosis. Mild is less than 50% stenosis. Moderate is 50-69% stenosis. Severe is 70% to 99% stenosis. Total occlusion is no detectable patent lumen. Dictated and Authenticated by: Mynor Hinton MD. Ordering:BRIT Adorno MD
[2021-05-26 22:50] LABS: Salicylate 5.3 mg/dL (<2.8)
[2021-05-26 23:03] LABS: Acetaminophen < 2 ug/mL (10-30)
[2021-05-26 23:40] LABS: *AMPHETAMINES SCREEN URINE Negative (Negative); *BARBITURATES SCREEN URINE Negative (Negative); *BENZODIAZEPINES SCREEN URINE Negative (Negative); Cannabinoids THC Negative (Negative); Cocaine Screen,Urine Negative (Negative); METHADONE URINE SCREEN Negative (Negative); OPIATES URINE SCREEN Negative (Negative)
[2021-05-26 23:41] LABS: Tricyclic Antidepressants Negative (Negative)
== END 2021-05-26 23:47 | disposition home or self-care (01) ==
PROVIDERS: Emergency Provider Student in an Organized Health Care Education/Training Program; PCP Family Medicine
DX: T46.5X1A Poisoning by other antihypertensive drugs, accidental (unintentional), initial encounter (principal); T40.2X1A Poisoning by other opioids, accidental (unintentional), initial encounter; R41.82 Altered mental status, unspecified
CPT/HCPCS: 70496; 70498; 80053; 80307; 82805; 93005; 96360; 96361; 99285; 70450; 80320; 80329; 82140; 84443; 85025; 93010; 99284; J3490

== ENCOUNTER 2021-10-18 02:15 | Outpatient (CLI) | payer MEDICAID, SELFPAY ==
[2021-10-18 14:48] LABS: ALT 24 U/L (16-63); AST 21 U/L (15-37); Albumin 4.1 g/dL (3.4-5.0); Alkaline Phosphatase 74 U/L (46-116); Anion Gap 9.2 mmol/L (3-11); BUN 19 mg/dL (7-18); Bilirubin, Total 0.3 mg/dL (0.2-1.0); CO2 27.8 mmol/L (21.0-32.0); CREATININE 1.1 mg/dL (0.70-1.30); Calculated LDL 159 mg/dL (<100); Chloride 104 mmol/L (98-107); Cholesterol 233 mg/dL (<200); Glucose 100 mg/dL (74-106); HDL Cholesterol 42 mg/dL (40-60); Potassium 3.8 mmol/L (3.5-5.1); Sodium 141 mmol/L (136-145); Total Protein 7.8 g/dL (6.4-8.2); Triglyceride 160 mg/dL (<150)
[2021-10-19 11:46] LABS: Hepatitis C Ab w Rflx HCV PCR Reactive (Negative)
[2021-10-20 05:11] LABS: Vitamin D 25 Total 62.3 ng/mL (30-100)
[2021-10-20 11:58] LABS: HCV RNA Qualitative Undetected (Undetected)
== END 2021-10-18 02:16 | disposition home or self-care (01) ==
LOC: LBO 02:15
PROVIDERS: PCP Family Medicine; Visit Provider Family Medicine
DX: B18.2 Chronic viral hepatitis C (principal); Z00.00 Encounter for general adult medical examination without abnormal findings; Z11.59 Encounter for screening for other viral diseases
CPT/HCPCS: 36415; 80053; 80061; 82306; 86803; 87522

== ENCOUNTER 2021-12-27 13:24 | Emergency (ER) | payer MEDICAID, SELFPAY ==
[2021-12-27 13:43] VITALS: BP 158/95; PULSE 77; RESP 16; TEMP 36.9; O2SAT 100
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
[2021-12-27 14:56] VITALS: BP 147/96; PULSE 85; TEMP 36.3; O2SAT 100
== END 2021-12-27 15:40 | disposition home or self-care (01) ==
PROVIDERS: Emergency Provider Physician Assistant; PCP Family Medicine
DX: M25.512 Pain in left shoulder (principal); V00.181A Fall from other rolling-type pedestrian conveyance, initial encounter
CPT/HCPCS: 99283; 73030

== ENCOUNTER 2022-11-20 16:06 | Outpatient (REF) | payer MEDICAID, SELFPAY ==
[2022-11-20 15:00] LABS: Abs Immature Grans 0.03 10^3/uL (0.0-0.06); Absolute Basophil Count 0.08 10^3/uL (0.0-0.2); Absolute Eosinophil Count 0.24 10^3/uL (0.0-0.7); Absolute Lymphocyte Count 4.01 10^3/uL (1.2-3.4); Absolute Neutrophil Count 7.18 10^3/uL (1.2-6.7); Basophils % 0.7; HCT 46.5 % (40.0-50.0); Immature Grans % 0.2; Lymphocytes % 33.2; MCHC 34.4 % (32.0-36.0); MCV 93 fL (80-95); MPV 10.9 fL (8.0-11.0); Monocytes % 4.5; Neutrophils % 59.4; Platelet Count 182 10^3/uL (130-400); RDW 13.6 % (11.8-14.1); RDW-SD 46.2 fL; WBC 12.09 10^3/uL (4.4-10.8)
[2022-11-20 15:06] LABS: Absolute Monocyte Count 0.54 10^3/uL (0.1-0.8)
[2022-11-20 15:33] LABS: ALT 32 U/L (16-63); AST 26 U/L (15-37); Albumin 4.2 g/dL (3.4-5.0); Alkaline Phosphatase 78 U/L (46-116); Anion Gap 12.5 mmol/L (3-11); BUN 16 mg/dL (7-18); Bilirubin, Total 0.2 mg/dL (0.2-1.0); CO2 24.5 mmol/L (21.0-32.0); CREATININE 1.1 mg/dL (0.70-1.30); Calcium 8.9 mg/dL (8.5-10.1); Calculated LDL 141 mg/dL (<100); Chloride 104 mmol/L (98-107); Cholesterol 209 mg/dL (<200); Estimated GFR 80.27 (mL/min/1.73m2); Glucose 100 mg/dL (74-106); HDL Cholesterol 51 mg/dL (40-60); Magnesium 2.1 mg/dL (1.8-2.4); Potassium 4.3 mmol/L (3.5-5.1); Sodium 141 mmol/L (136-145); Total Protein 7.3 g/dL (6.4-8.2); Triglyceride 85 mg/dL (<150)
[2022-11-20 15:45] LABS: Hemoglobin A1C 5.6 % (<5.7)
[2022-11-21 12:08] LABS: Hepatitis C Ab w Rflx HCV PCR Reactive (Negative)
[2022-11-22 14:07] LABS: HCV RNA Qualitative Undetected (Undetected)
== END 2022-11-20 16:07 | disposition home or self-care (01) ==
LOC: NCHCN 16:06
PROVIDERS: PCP Family Medicine; Visit Provider Family Medicine
DX: K74.01 Hepatic fibrosis, early fibrosis (principal); R61 Generalized hyperhidrosis; B18.2 Chronic viral hepatitis C; Z13.220 Encounter for screening for lipoid disorders; Z13.1 Encounter for screening for diabetes mellitus
CPT/HCPCS: 80053; 80061; 86803; 87522; 83036; 83735; 85025

== ENCOUNTER 2022-11-24 11:12 | Outpatient (CLI) | payer MEDICAID, SELFPAY ==
[2022-11-27 11:06] LABS: Hepatitis C Ab w Rflx HCV PCR Reactive (Negative)
[2022-11-27 14:49] LABS: HCV RNA Qualitative Undetected (Undetected)
== END 2022-11-24 11:13 | disposition home or self-care (01) ==
LOC: LBO 11:12
PROVIDERS: PCP Family Medicine; Visit Provider Family Medicine
DX: Z00.00 Encounter for general adult medical examination without abnormal findings (principal); K74.00 Hepatic fibrosis, unspecified; R61 Generalized hyperhidrosis
CPT/HCPCS: 36415; 86803; 87522

== ENCOUNTER 2023-03-13 00:42 | Outpatient (CLI) | payer MEDICAID, SELFPAY ==
--- NOTE | 2023-03-13 14:30 | DI.CTLCSR_ITS ---
Exam(s) CT CHEST LUNG CANCER SCREEN EXAM: CT CHEST LUNG CANCER SCREEN CLINICAL HISTORY: SMOKER, F17.200 TECHNIQUE: Imaging Protocol: Axial computed tomography images with coronal and sagittal reformatted images were created and reviewed. Low dose screening protocol. COMPARISON: CR XR CHEST 2V PA LATERAL from 03/14/2019 FINDINGS: Tracheobronchial tree: No bronchiectasis or mucus plugging.. Mediastinum and Ayleen: No dominant adenopathy or fluid collection. Pulmonary parenchyma: No consolidation or dominant measurable mass. No visible emphysematous changes. Lung Nodules: No suspicious pulmonary nodules. Pleura: No effusion. No pneumothorax. Heart: The heart is not dilated. Mild coronary artery calcifications are seen. Aorta: Thoracic aorta non-dilated. Upper abdomen: Unremarkable. Bones: Unremarkable for age. Soft Tissues: Unremarkable. IMPRESSION: No suspicious pulmonary nodules. Lung RADS Cat 1 - Negative: No nodules and definitely benign nodules Lung-RADS 1.0 CATEGORIES: Category 0 - Prior chest CT exam(s) being located for comparison. Category 1 - Annual screening in 12 months. No nodules or definitely benign nodules. Category 2 - Annual screening in 12 months. Benign appearance. Nodules with low likelihood of becomin g active cancer. Category 3 - 6-month follow-up. Probably benign. Short-term follow-up suggested. Nodules with low lik elihood of becoming active cancer. Category 4A - 3-month follow-up and CT/PET if >8 mm in size. Suspicious finding. Findings which requi re additional testing. Category 4B - Findings which require additional testing and tissue sampling. Category 4X - Category 3 or 4 nodules with additional features or imaging findings that increases the suspicion of malignancy. Modifier S- Potentially clinically significant findings (non lung cancer) RADIATION DOSE DELIVERED: 76.01mGy.cm Total DLP DATA REPOSITORY: All CT scans at this facility are submitted to the National Radiology Data Registry (NRDR) Dose Index Registry (DIR) with the [employer] (ACR). RADIATION OPTIMIZATION: All CT scans at this facility use at least one of these dose optimization te chniques: automated exposure control; mA and/or kV adjustment per patient size (includes targeted exa ms where dose is matched to clinical indication); or iterative reconstruction.
== END 2023-03-13 01:02 ==
LOC: DI 00:43
PROVIDERS: PCP Family Medicine; Visit Provider Family Medicine
DX: Z12.2 Encounter for screening for malignant neoplasm of respiratory organs (principal)
CPT/HCPCS: 71271

== ENCOUNTER 2023-03-13 14:33 | Outpatient (CLI) | payer MEDICAID, SELFPAY ==
[2023-03-21 12:04] LABS: Testosterone, Free 9.55 ng/dL (4.06-15.6); Testosterone, Total 445 ng/dL (240-950)
== END 2023-03-13 14:34 | disposition home or self-care (01) ==
LOC: LBO 14:37
PROVIDERS: PCP Family Medicine; Visit Provider Family Medicine
DX: R53.1 Weakness (principal)
CPT/HCPCS: 36415; 84402; 84403

== ENCOUNTER 2023-06-26 08:38 | Emergency (ER) | payer MEDICAID, SELFPAY ==
[2023-06-26 08:45] VITALS: BP 158/105; PULSE 84; RESP 16; TEMP 36.5; O2SAT 100
--- NOTE | 2023-06-26 09:00 | ED.GENADUL_ITS ---
Discharge Plan Disposition Patient Disposition: Home Discharge Details Clinical Impression: Radicular pain in right arm Primary Care Provider: Zonia Camacho ED Provider: Stephanie Fraser Home Meds and New Rx's Prescriptions: New methocarbamol 1,000 mg tablet 1,000 mg PO TID Qty: 30 0RF meloxicam 15 mg tablet 15 mg PO DAILY Qty: 30 0RF Rx Instructions: take once daily with food. do not take any additional NSAIDS with this medicine No Action multivitamin Tablet 1 tab PO DAILY Discharge Instructions Additional Instructions: CONTINUE GABAPENTIN AT 300MG THREE TIMES PER DAY START OTHER MEDICATIONS PRESCRIBED PLEASE FOLLOW UP WITH YOUR PRIMARY CARE DOCTOR FOR RE-EVALUATION OF TREATMENTS Medical Decision Making Emergent evaluation of acute on chronic neck pain. Symptoms consistent with cervical radiculopathy. At this time the patient is not having any acute neurologic deficits. I do not suspect spinal cord injury. I do not feel that emergent imaging is indicated. As patient is a recovering opiate user, I will avoid opiates. I will will prescribe anti-inflammatory and muscle relaxer. Recommend that he continue his gabapentin. He has primary care follow-up as well as physical therapy scheduled. Medical Records Medical records reviewed: Yes I reviewed the patient's medical records. HPI General Date/Time Provider Initiated Documentation: 06/26/23 08:40 . Limitations to Documentation: no limitations . Information obtained by: patient . [facility] Narrative: 52-year-old gentleman with past medical history of prior drug addiction presents for evaluation of chronic right arm pain. Reports symptoms started 2 years ago. Symptoms have been constant. He reports acute worsening of the symptoms 1 week ago after carrying a child on his shoulders. He reports pain starts in the right side of his neck and radiates down the right arm. No weakness in his hand. He does report that he occasionally drops his cell phone. He denies any numbness or tingling. He reports taking gabapentin last night that did not improve his symptoms. He does report improvement with taking Tylenol and Motrin together. He has been evaluated by his primary care provider for this. He is scheduled for physical therapy next week. Related Data Home Medications Medication Instructions Recorded Confirmed multivitamin 1 tab PO DAILY 12/30/21 06/26/23 meloxicam 15 mg tablet 15 mg PO DAILY #30 tabs 06/26/23 methocarbamol 1,000 mg tablet 1,000 mg PO TID #30 tabs 06/26/23 Previous Rx's Medication Instructions Recorded meloxicam 15 mg tablet 15 mg PO DAILY #30 tabs 06/26/23 methocarbamol 1,000 mg tablet 1,000 mg PO TID #30 tabs 06/26/23 Allergies Allergy/AdvReac Type Severity Reaction Status Date / Time No Known Drug Allergies Allergy Unverified 06/26/23 08:49 General Stated Complaint: Orthopedic RENETTA: 4 PFSH All Active Problems Radicular pain in right arm (Acute) Hepatic fibrosis (Acute) Screening for colon cancer (Acute) Medical History Accidental overdose Alcohol abuse Anxiety (11/29/15) Bipolar 1 disorder (08/06/12) 2004, dr marissa Melgar of toe Elevated transaminase level Hepatitis C Insomnia IV drug abuse Lip lesion Polysubstance abuse Rigors Rotator cuff syndrome Sepsis Shoulder pain, left Sleeping difficulty (06/22/15) Thickening of wall of gallbladder Tobacco use disorder (07/31/12) Unresolved grief Weakness Surgical History liver biopsy Family History Mother , breast CA Personal history of malignant neoplasm Father , alcoholism Alcohol abuse Social History Smoking/Tobacco Use Status: Current every day Tobacco Type: cigarettes Smoking risk assessment performed?: Yes Alcohol Intake: never Drug use: Current Sobriety Substance use type: crack/cocaine and heroin Details: current remission after rehab 08/2022 Housing: house Do you feel safe at home: Yes Do you feel safe in your relationship?: Yes Exam Narrative Exam Narrative: Review of Systems: All systems reviewed & are unremarkable except as noted in HPI and below Exam: Const: Well-nourished, Well-developed, appearing stated age HEENT: NACT / Eyes: PERRL, no conjunctival injection, and symmetrical lids / EARS Atraumatic external nose and ears / MOUTH Moist MM / NECK: Symmetric, trachea midline, No thyromegaly, no midline tenderness step off or deformity / THROAT oropharynx clear CVS: RRR, RESP: Unlabored respiratory effort GI: Nondistended MSK: Extremities w/o deformity or TTP, No cyanosis or clubbing, full range of motion Skin: Warm, Dry. No rashes or lesions. Neuro: body welder II-XII grossly intact. Sensation grossly intact, no focal neurologic deficits. full ROM in RUE with 5/5 strength in all distributions, no sensory deficits Psych: (AAO) x3. Appropriate mood and affect Course Vital Signs Vital signs: Vital Signs Temperature 36.5 C 06/26/23 08:45 Pulse 84 06/26/23 08:45 Respiratory Rate 16 06/26/23 08:45 Blood Pressure 158/105 H 06/26/23 08:45 Pulse Oximetry 100 06/26/23 08:45 Temperature 36.5 C 06/26/23 08:45 Temperature Source Temporal Artery Scan 06/26/23 08:45 Pulse 84 06/26/23 08:45 Respiratory Rate 16 06/26/23 08:45 Respiratory Effort Normal, Non-Labored 06/26/23 08:50 Blood Pressure 158/105 H 06/26/23 08:45 Blood Pressure Position Sitting 06/26/23 08:45 Pulse Oximetry 100 06/26/23 08:45 Oxygen Delivery Method Room Air 06/26/23 08:45 Oxygen Flow Rate 0 06/26/23 08:45
== END 2023-06-26 09:20 | disposition home or self-care (01) ==
PROVIDERS: Emergency Provider Emergency Medicine; PCP Family Medicine
DX: M54.12 Radiculopathy, cervical region (principal); F17.210 Nicotine dependence, cigarettes, uncomplicated
CPT/HCPCS: 99282; 99283

== ENCOUNTER 2023-07-03 11:16 | Outpatient (CLI) | payer MEDICAID, SELFPAY ==
--- NOTE | 2023-07-03 11:00 | DI.RAD_ITS ---
Exam(s) XR SHOULDER RT COMPLETE 2+V EXAM: XR SHOULDER RT COMPLETE 2+V CLINICAL HISTORY: RIGHT SHOULDER PAIN. TECHNIQUE: 2D digital imaging was performed of the right shoulder. Two images were obtained. Grash ey and axillary views were obtained. COMPARISON: There are no priors for comparison. FINDINGS: BONES: No acute fracture is present. No bony destructive lesion is seen. JOINTS: No dislocation present. The joint spaces are well maintained. SOFT TISSUE: The visualized lung morales are clear. IMPRESSION: Unremarkable radiographs of the right shoulder. DATA REPOSITORY: RADIATION DOSE DELIVERED:
== END 2023-07-03 11:17 | disposition home or self-care (01) ==
LOC: DIORS 11:16
PROVIDERS: PCP Family Medicine; Visit Provider Student in an Organized Health Care Education/Training Program
DX: M25.511 Pain in right shoulder (principal)
CPT/HCPCS: 73030

== ENCOUNTER 2023-07-12 12:29 | Outpatient (REF) | payer MEDICAID, SELFPAY ==
--- NOTE | 2023-07-12 11:30 | LIPBX_PTH ---
PATIENT: Adiel Rubin LOC: [facility] U#:[id number] AGE/SX: 52/M ROOM: RE07/12/[address]: Clive Seo MD : [id number] BED: DIS: 07/12/2023 SPEC #: [id number] RECD: 07/12/23 14:04 STATUS: JACKY REQ #: [id number] EARLE: 07/12/23 11:[address]: Clive Seo DEPT: Surgical Specimen RECD BY: Maryanne Banuelos ENTERED: 07/12/23 14:04 SP TYPE: LIPBX OTHR DR: Zonia Camacho Tissues: 1 - LIP BIOPSY/RESECTION Procedures: SKIN LEVEL 4 Comments: [id number]
== END 2023-07-12 12:30 | disposition home or self-care (01) ==
LOC: LBN 12:29
PROVIDERS: PCP Family Medicine; Visit Provider Otolaryngology
DX: K13.0 Diseases of lips (principal); F17.210 Nicotine dependence, cigarettes, uncomplicated
CPT/HCPCS: 88305

== ENCOUNTER → 2023-08-28 00:54 | Outpatient (CLI) | payer MEDICAID, SELFPAY ==
--- NOTE | 2023-08-28 | DI.MRI_ITS ---
Exam(s) MR CERVICAL SPINE WO EXAM: MR CERVICAL SPINE WO CLINICAL HISTORY: RT CERVICAL RADICULOPATHY M54.12 TECHNIQUE: Multiplanar multisequence MRI of the cervical spine was performed without intravenous con trast. COMPARISON: CT CT HEAD WO from 05/26/[address] BRAIN NECK CTA from 05/26/2021 FINDINGS: BONES: Vertebral body heights are maintained. Intervertebral disc spaces are normal. Alignment is nor mal. Bone marrow signal intensity is within normal limits. CERVICAL CORD: Craniovertebral junction is unremarkable. The cervical cord is normal size and signal intensity. SOFT TISSUES: Unremarkable. C2-3: No disc herniation or bulge is identified. No significant central spinal canal or neural forami nal stenosis. C3-4: There is a diffuse disc bulge. No significant central spinal canal or neural foraminal stenosi s C4-5: No disc herniation or bulge is identified. No significant central spinal canal or neural forami nal stenosis C5-6: There is a mild diffuse disc bulge. Degenerative changes of the uncovertebral joints are seen bilaterally, left greater than right. The findings cause bilateral neural foraminal stenosis which i s moderate on the left and [id number] on the right. No significant central spinal canal stenos is is seen. C6-7: There is a mild diffuse disc bulge. Mild degenerative changes are seen at the left uncovertebr al joint causing mild left neural foraminal narrowing. No significant central spinal canal or right neural foraminal stenosis is seen. C7-T1: There is a mild asymmetric disc herniation into the right neural foramen which causes mild rig ht neural foraminal stenosis. No significant central spinal canal or left neural foraminal stenosis. IMPRESSION: 1. Degenerative changes at C5-C6 causing bilateral neural foraminal stenosis, left greater than right . 2. Mild left neural foraminal stenosis at C6-C7. 3. Mild right neural foraminal stenosis at C7-T1. 4. Diffuse disc bulge at C3-C4 but no significant central spinal canal or neural foraminal stenosis i s seen. DATA REPOSITORY:
== END ==
PROVIDERS: PCP Family Medicine; Visit Provider Physician Assistant
DX: M99.71 Connective tissue and disc stenosis of intervertebral foramina of cervical region (principal)
CPT/HCPCS: 72141

== ENCOUNTER 2024-02-19 09:04 | Outpatient (REF) | payer MEDICAID, SELFPAY ==
[2024-02-19 16:18] LABS: ALT 22 U/L (16-63); AST 21 U/L (15-37); Albumin 4.1 g/dL (3.4-5.0); Alkaline Phosphatase 72 U/L (46-116); Anion Gap 11.8 mmol/L (3-11); BUN 19 mg/dL (7-18); Bilirubin, Total 0.3 mg/dL (0.2-1.0); CO2 25.2 mmol/L (21.0-32.0); CREATININE 1.2 mg/dL (0.70-1.30); Calcium 8.5 mg/dL (8.5-10.1); Calculated LDL 156 mg/dL (<100); Chloride 106 mmol/L (98-107); Cholesterol 213 mg/dL (<200); Estimated GFR 71.42 (mL/min/1.73m2); Glucose 98 mg/dL (74-106); HDL Cholesterol 45 mg/dL (40-60); Potassium 4.4 mmol/L (3.5-5.1); Sodium 143 mmol/L (136-145); Total Protein 7.2 g/dL (6.4-8.2); Triglyceride 62 mg/dL (<150); Vitamin D 25 Total 48.1 ng/mL (30-100)
[2024-02-19 23:07] LABS: PSA, Screening 0.5 ng/mL (<=3.5)
== END 2024-02-19 09:05 | disposition home or self-care (01) ==
LOC: NCHCN 09:04
PROVIDERS: PCP Family Medicine; Visit Provider Family Medicine
DX: Z00.00 Encounter for general adult medical examination without abnormal findings (principal)
CPT/HCPCS: 80053; 80061; 82306; 84153

== ENCOUNTER 2024-08-19 13:16 | Outpatient (REF) | payer MEDICAID, SELFPAY ==
[2024-08-19 16:32] LABS: Calculated LDL 187 mg/dL (<100); Cholesterol 255 mg/dL (<200); HDL Cholesterol 54 mg/dL (40-60); Triglyceride 74 mg/dL (<150)
== END 2024-08-19 13:17 | disposition home or self-care (01) ==
LOC: NCHCN 13:16
PROVIDERS: PCP Family Medicine; Visit Provider Family Medicine
DX: E78.5 Hyperlipidemia, unspecified (principal)
CPT/HCPCS: 80061

== ENCOUNTER 2025-06-28 12:30 | Emergency (ER) | payer MEDICAID, SELFPAY ==
[2025-06-28 12:32] VITALS: BP 143/99; PULSE 88; RESP 18; TEMP 37.2; O2SAT 98
[2025-06-28 12:40] VITALS: O2SAT 98
--- NOTE | 2025-06-28 12:45 | DI.RAD_ITS ---
Exam(s) XR CHEST 2V PA LATERAL EXAM: XR CHEST 2V PA LATERAL CLINICAL HISTORY: cough x 2weeks, concern for PNA TECHNIQUE: 2D digital imaging was performed of the chest. Two images were obtained. PA and lateral views were obtained. COMPARISON: CR CHEST 2 VIEWS PA,LAT from 05/22/2016 CR CHEST 2 VIEWS PA,LAT from 08/31/2017 CR XR CHEST 2V PA LATERAL from 03/14/2019 FINDINGS: MEDIASTINUM: Normal. HEART: Normal. PULMONARY VASCULATURE: Normal. LUNGS: Clear. PLEURAL SPACE: No pleural effusion or pneumothorax. BONE:Within normal limits for the patient's age. OTHER FINDINGS:Normal. IMPRESSION: No acute pulmonary findings. DATA REPOSITORY: RADIATION DOSE DELIVERED:
[2025-06-28] MEDS: Benzonatate 100 MG CAP PO (13:02)
[2025-06-28 13:33] LABS: COVID-19 PCR Negative (Negative); RSV PCR Negative (Negative)
--- NOTE | 2025-06-28 14:09 | ED.GENADUL_ITS ---
Discharge Plan Disposition Patient Disposition: Home Condition: Good Discharge Details Clinical Impression: Cough Primary Care Provider: Zonia Camacho ED Provider: Rain Durham Home Meds and New Rx's Prescriptions: New benzonatate 100 mg capsule 100 mg PO TID PRNQty: 20 0RF No Action latanoprost 0.005 % drops Patient Comments: Instill 1 drop into both eyes every night at bedtime shake well before use phenylephrine HCl [Sudafed PE] See Rx Instructions PO TID PRN Rx Instructions: orally three times a day PRN; Discharge Instructions Additional Instructions: Your symptoms today are most consistent with a viral illness. You may use the benzonatate/Tessalon Perles 1 tablet every 8 hours as needed for cough. I recommend you also try Robitussin DM or Mucinex DM, Vicks vapor rub, cough drops, and elevating the head of your bed when you sleeping. Humidifier at bedside may also be helpful. Continue taking the nasal spray as prescribed. I recommend that you try smoking cessation, as smoke or vaping can be very irritating to lungs Please stay well hydrated, drinking plenty of fluids throughout the day. You may use ibuprofen 600 mg every 8 hours and tylenol 650 mg every 8 hours as needed for fever /chills or body aches. Get plenty of rest. Practice good handwashing and wear a mask in public if you are coughing to avoid spreading illness to others. Return to emergency care if you develop difficulty breathing, chest pains, worsening of cough or fever after initial improvement, or if you are very worried and need to be rechecked again immediately. Referrals: Zonia Camacho [Primary Care Provider, Medicine] HPI General Date/Time Provider Initiated Documentation: 06/28/25 12:41 . HPI Narrative: Adiel emiliano 54-year-old male who presents to the emergency department today for evaluation of persistent cough. He reports he has had persistent upper respiratory symptoms for the past week, worsening last Sunday. Symptoms began with bilateral ear discomfort/pressure and sinus congestion/runny nose 1.5 weeks ago, accompanied by diarrhea (d2tbktn,nonbloody), headaches, coughing, sore throat. Treated at a walk-in clinic with Sudafed and nasal spray with little improvement of symptoms. Coughing fits at night disrupt sleep, with wheezing when lying down. Denies recent recorded fevers, change in p.o. intake, nausea/vomiting, abdominal pain, change in bladder function. Able to stay well-hydrated without difficulty. No history of wheezing during illness. Smokes and consumes large amounts of black coffee. Denies significant PMH. No history of heart or lung problems, diabetes, immunocompromise, or HIV. Denies history of treatment resistant infections. Last on antibiotics a year ago for walking pneumonia diagnosed by Dr. Lawrence. Related Data Home Medications ?Medication ?Instructions ?Recorded ?Confirmed benzonatate 100 mg capsule 100 mg PO TID PRN #20 caps 06/28/25 latanoprost 0.005 % eye drops drp 06/28/25 phenylephrine HCl See Rx Instructions PO TID P RN 06/28/25 06/28/25 Previous Rx's ?Medication ?Instructions ?Recorded benzonatate 100 mg capsule 100 mg PO TID PRN #20 caps 06/28/25 Allergies Allergy/AdvReac Type Severity Reaction Status Date / Time No Known Drug Allergies Allergy Unverified 07/03/23 11:03 General Stated Complaint: RespSymp RENETTA: 3 Exam Narrative Exam Narrative: General Appearance: Normal. Alert and oriented, no acute distress Vital signs: Within normal limits, mild hypertension noted HEENT: Moist mucous membranes. No oropharyngeal erythema or tonsillar hypertrophy/exudate. TMs pearly guzman, translucent. No pain on manipulation of pinna. Respiratory: Easy work of breathing, occasional cough. Coarse sounds in lungs, no wheezing. Cardiac: Regular rate and rhythm, no murmurs Skin: Warm and dry, no rash. Psychiatric: Normal. Course Vital Signs Vital signs: Vital Signs Temperature 37.2 C 06/28/25 12:32 Pulse 88 06/28/25 12:32 Respiratory Rate 18 06/28/25 12:32 Blood Pressure 143/99 H 06/28/25 12:32 Pulse Oximetry 98 06/28/25 12:32 Temperature 37.2 C 06/28/25 12:32 Temperature Source Tympanic 06/28/25 12:32 Pulse 88 06/28/25 12:32 Respiratory Rate 18 06/28/25 12:32 Respiratory Effort Normal 06/28/25 12:40 Respiratory Depth Normal 06/28/25 12:40 Blood Pressure 143/99 H 06/28/25 12:32 Pulse Oximetry 98 06/28/25 12:40 Oxygen Delivery Method Room Air 06/28/25 12:40 Pain Level 1 06/28/25 12:40 Comment Ear ache 06/28/25 12:40 Lab/Test Results Lab/Test Results: Laboratory Tests Range/Units 06/28/25 12:50 COVID-19 Source Nasopharynx SARS-CoV-2 (PCR) (Negative) Negative Influenza Type A (PCR) (Negative) Negative Influenza Type B (PCR) (Negative) Negative RSV (PCR) (Negative) Negative Medical Decision Making Initial Assessment: 54-year-old male with upper respiratory symptoms including congestion, ear pressure, sore throat, and coughing fits that worsen at night. No evidence of ear infection upon examination. Differential Diagnosis includes but is not limited to; pneumonia, postviral bronchitis, postnasal drip, viral illness. No red flags concerning for serious systemic illness requiring blood work at this time. Patient does not meet SIRS criteria. ED Course: - Chest x-ray ordered - COVID-19/flu/RSV swab performed - Tessalon Perles administered I independently interpreted the following test: COVID/flu/RSV negative. No obvious infiltrate or cardiomegaly on chest x-ray. This was confirmed by radiologist Final Assessment: Postviral cough, likely postviral bronchitis versus postnasal drip Clinical Impression: Upper respiratory infection Follow-Up: Reviewed discharge instructions with patient, including symptomatic management, use of Tessalon Perles, and red flags indicating need for return to emergency care. He voices agreement with plan of care. Follow up with primary care provider if symptoms persist or worsen. Patient Education: Discussed use of Tessalon Perles for cough suppression. Advised to monitor symptoms and seek further medical attention if necessary. Patient consented to the use of CARMELLA Imaging Data Radiologic Study: Radiologist's impression: Exam(s) XR CHEST 2V PA LATERAL EXAM: XR CHEST 2V PA LATERAL CLINICAL HISTORY: cough x 2weeks, concern for PNA TECHNIQUE: 2D digital imaging was performed of the chest. Two images were obtained. PA and lateral views were obtained. COMPARISON: CR CHEST 2 VIEWS PA,LAT from 05/22/2016 CR CHEST 2 VIEWS PA,LAT from 08/31/2017 CR XR CHEST 2V PA LATERAL from 03/14/2019 FINDINGS: MEDIASTINUM: Normal. HEART: Normal. PULMONARY VASCULATURE: Normal. LUNGS: Clear. PLEURAL SPACE: No pleural effusion or pneumothorax. BONE:Within normal limits for the patient's age. OTHER FINDINGS:Normal. IMPRESSION: No acute pulmonary findings. PFSH All Active Problems (Updated 06/28/25 @ 13:51 by Rain Nagel) Cough (Acute) Pain of paraspinal muscle (Acute) Hepatic fibrosis (Acute) Screening for colon cancer (Acute) Medical History Accidental overdose Alcohol abuse Anxiety (11/29/15) Bipolar 1 disorder (08/06/12) 2004, dr marissa Melgar of toe Elevated transaminase level Hepatitis C Insomnia IV drug abuse Lip lesion Polysubstance abuse Rigors Rotator cuff syndrome Sepsis Shoulder pain, left Sleeping difficulty (06/22/15) Thickening of wall of gallbladder Tobacco use disorder (07/31/12) Unresolved grief Weakness Surgical History liver biopsy Family History Mother , breast CA Personal history of malignant neoplasm Father , alcoholism Alcohol abuse Social History Smoking/Tobacco Use Status: Current every day Tobacco Type: cigarettes Smoking risk assessment performed?: Yes Alcohol Intake: never Drug use: Current Sobriety Substance use type: crack/cocaine and heroin Details: current remission after rehab 08/2022 Housing: house Do you feel safe at home: Yes Do you feel safe in your relationship?: Yes
[2025-06-28] MEDS: Benzonatate 100 MG CAP 300 MG PO (14:21)
[2025-06-28 14:25] VITALS: BP 147/88; PULSE 73; RESP 16; TEMP 36.9; O2SAT 98
== END 2025-06-28 14:25 | disposition home or self-care (01) ==
PROVIDERS: Emergency Provider Nurse Practitioner Family; PCP Family Medicine
DX: R05.9 Cough, unspecified (principal); R51.9 Headache, unspecified; R09.81 Nasal congestion
CPT/HCPCS: 99283 ×2; 87637; 71046

== ENCOUNTER → 2025-07-30 02:23 | Outpatient (CLI) | payer MEDICAID, SELFPAY ==
--- NOTE | 2025-07-30 08:00 | DI.RAD_ITS ---
Exam(s) XR FOOT RT COMPLETE EXAM: XR FOOT RT COMPLETE CLINICAL HISTORY: Right foot pain,M79.671. TECHNIQUE: 2D digital imaging was performed. Three views. COMPARISON: No exams were available for comparison FINDINGS: BONES: No acute fracture is present. No bony destructive lesion is seen. JOINTS: No dislocation present. No significant degenerative changes. SOFT TISSUE: Normal. IMPRESSION: Unremarkable radiographs of the right foot. DATA REPOSITORY: RADIATION DOSE DELIVERED:
== END ==
LOC: DI 02:23
PROVIDERS: PCP Family Medicine; Visit Provider Podiatrist
DX: M79.671 Pain in right foot (principal)
CPT/HCPCS: 73630